=== PATIENT | female | born 1955 | race Caucasian/White ===

== ENCOUNTER → 2018-11-23 | Outpatient (CLI) | payer MEDICARE, OTHER, SELFPAY | PROVIDERS: PCP Family Medicine; Visit Provider Family Medicine | DX: M19.011 Primary osteoarthritis, right shoulder (principal); M47.892 Other spondylosis, cervical region | CPT/HCPCS: 73030 ==

== ENCOUNTER 2019-10-21 12:31 | Outpatient (CLI) | payer MEDICARE, SELFPAY ==
--- NOTE | ~2019-10-21 | MR_ITS ---
EXAMINATION: MR shoulder RT wo con DATE: 10/21/2019 13:35 INDICATION: Anterior right shoulder pain radiating down the upper arm. TECHNIQUE: Magnetic resonance imaging (MRI) of the right shoulder was performed without intravenous c ontrast. Sequences included axial PD-weighted FS FSE, coronal oblique PD-weighted FS FSE and T2-weigh samia FS FSE, and sagittal oblique T2-weighted FS FSE and T1-weighted FSE. COMPARISON: Right shoulder radiographs 11/23/2018 FINDINGS: Coracoacromial arch: The acromion undersurface is curved in morphology (type II). There is severe acromioclavicular joint osteoarthritis including inferiorly directed osteophytes. There is severe subacromial/subdeltoid burs itis. Rotator cuff: There is severe supraspinatus and infraspinatus tendinopathy. There is a bursal-sided tear of anterio r supraspinatus tendon measuring 5 mm anterior to posterior by 9 mm proximal to distal by 40% tendon thickness. Teres minor tendon is normal. There is moderate subscapularis tendinopathy. There is no as ymmetric fatty atrophy of the rotator cuff muscle bellies. Biceps tendon and glenoid labrum: Biceps tendon is in bicipital groove. Intra-articular biceps tendon is normal. There is a tear of sup erior labrum from 11:00 to 12:00. There is detachment of the anteroinferior labrum. Fluid: There is a moderate-sized glenohumeral joint effusion. Bones/cartilage: There is full-thickness cartilage loss of anteroinferior glenoid. Humeral head cartilage is normal. IMPRESSION: 1. Severe rotator cuff tendinopathy with bursal-sided, partial-thickness tear of supraspinatus tendon . 2. Focal severe chondrosis of anteroinferior glenoid. Superior and anteroinferior labral tear. 3. Moderate-sized glenohumeral joint effusion. 4. Severe subacromial/subdeltoid bursitis. 5. Severe acromioclavicular joint osteoarthritis. Reviewed, dictated and finalized at location A. IMPRESSION: 1. Severe rotator cuff tendinopathy with bursal-sided, partial-thickness tear o f supraspinatus tendon. 2. Focal severe chondrosis of anteroinferior glenoid. Superior and anteroinferi or labral tear. 3. Moderate-sized glenohumeral joint effusion. 4. Severe subacromial/subdeltoid bursitis. 5. Severe acromioclavicular joint osteoarthritis.
== END 2019-10-21 12:32 | disposition home or self-care (01) ==
PROVIDERS: PCP Family Medicine; Visit Provider Orthopaedic Surgery
DX: M19.011 Primary osteoarthritis, right shoulder (principal); M75.51 Bursitis of right shoulder
CPT/HCPCS: 73221

== ENCOUNTER 2019-12-29 03:17 | Outpatient (CLI) | payer MEDICARE, SELFPAY ==
[2019-12-29 17:45] LABS: SARS-CoV-2 RNA PCR Negative
== END 2019-12-29 03:18 | disposition home or self-care (01) ==
LOC: ANHCOVIDDT 03:17
PROVIDERS: PCP Family Medicine; Visit Provider Orthopaedic Surgery
DX: Z01.812 Encounter for preprocedural laboratory examination (principal); Z20.828 Contact with and (suspected) exposure to other viral communicable diseases
CPT/HCPCS: 87635; C9803; U0003

== ENCOUNTER 2019-12-29 07:35 | Outpatient (CLI) | payer MEDICARE, SELFPAY ==
--- NOTE | 2019-12-29 07:37 | ECG_ITS ---
Measurements Intervals [place] Rate: 70 P: 40 ID: [id number] QRS: -29 QRSD: 86 T: 57 QT: 362 QTc: 391 Interpretive Statements SINUS RHYTHM CANNOT RULE OUT SEPTAL INFARCT, AGE INDETERMINATE ABNORMAL ECG Electronically Signed On 12-29-2019 8:11:16 CDT by Ashkan Manzano D.O.
== END 2019-12-29 07:36 | disposition home or self-care (01) ==
LOC: ANHSURGERY 07:37
PROVIDERS: PCP Family Medicine; Visit Provider Orthopaedic Surgery
DX: I10 Essential (primary) hypertension (principal); Z01.818 Encounter for other preprocedural examination; R94.31 Abnormal electrocardiogram [ECG] [EKG]
CPT/HCPCS: 93005

== ENCOUNTER 2020-01-01 01:03 | Day surgery (SDC) | payer MEDICARE, SELFPAY ==
[2019-12-20 14:35] VITALS: BMI 31.3
[2020-01-01] VITALS (9 sets, daily range): BP systolic 104–143; BP diastolic 57–78; PULSE 61–82; RESP 14–20; TEMP 36.1–36.2; O2SAT 98–100
--- NOTE | 2020-01-01 06:45 | WPDANESEPPF ---
Anes - Initial Pre Proc Eval Procedure: Operation Date: 01/01/20 07:30 Proposed Procedures p Right Rotator Cuff Repair, Acromioplasty, Distal Clavicle Excision, Proceed As Indicated - Chapo Amado MD Date/Time: 01/01/20 06:45 Surgeon: Chapo Amado MD Pre Op Diagnosis: Right Rotator Cuff Tear/ AC Arthritis Patient Data Age: 64 Gender: F Height: 1.5 m Weight: 70.31 kg Allergies Allergy/AdvReac Type Severity Reaction Status Date / Time No Known Allergies Allergy Verified 01/01/20 06:23 Home Medications Medication Instructions Recorded Confirmed Type lisinopril 10 mg tablet 10 mg PO DAILY #90 tablet 06/01/19 01/01/20 Rx minocycline 50 mg capsule 50 mg PO DAILY #90 cap 06/01/19 01/01/20 Rx venlafaxine 150 mg 150 mg PO DAILY #90 cap 11/21/19 01/01/20 Rx capsule,extended release 24 hr triamcinolone acetonide 0.1 % 1 applic TOPICAL BID #60 ml 12/04/19 01/01/20 Rx lotion ferrous sulfate 325 mg (65 mg 325 mg PO BID 12/19/19 01/01/20 History iron) tablet Ginkoba 1 cap PO DAILY 12/20/19 01/01/20 History acetaminophen [Tylenol Arthritis] 650 mg PO Q12H PRN 12/20/19 01/01/20 History ascorbic acid (vitamin C) [Vitamin 300 mg PO DAILY 12/20/19 01/01/20 History C] calcium citrate [Citracal] 500 mg PO DAILY 12/20/19 01/01/20 History venlafaxine 75 mg PO DAILY PRN 12/20/19 01/01/20 History Patient hx anesthesia problems: none Family hx anesthesia problems: none PMFSH Past Medical History Medical History (Updated 12/19/19 @ 10:23 by Chapo Amado MD) Acne rosacea Arthritis of right acromioclavicular joint Diabetes Last A1C= 5.8 History of gout Hypertension Osteoarthritis Tear of right rotator cuff Surgical History Surgical History H/O knee surgery Meniscus Repair- Dr. Amado Hx of section 12-17-78-Dr. Sj Riley 83-Dr. Sj Riley Family History Family History Father Family history of gout Depression Acute myocardial infarction, Onset Age: 60 Diabetes mellitus Hypertension Family history of elevated blood lipids Family history of cardiovascular disease Mother Depression Family history of malignant neoplasm of thyroid Diabetes mellitus Family history of glaucoma Hypertension Family history of elevated blood lipids Cerebrovascular accident Grandparent Family history of malignant neoplasm of breast in first degree relative Social History Social History Smoking status: Never smoker Alcohol intake: current Drinks per week: 1 Additional living arrangements comments: Additional occupation/education comments: [employer] Spiritual care concerns: No Anes - Eval Final PreProcedure Day of Procedure 01/01/20 06:45 Patient weight: obese Heart: regular rate and rhythm Lungs: clear to auscultation and normal air movement Airway: Mallampati scale class II Neurological: alert and oriented Last oral intake: >/= 8 hours ASA classification: III Emergent: no Anesthetic plan: proceed Anesthesia type and monitoring: general ETT and standard monitoring Informed Consent: The patient's anesthetic plan and its attendant risks and benefits were discussed with the patient/family/POA. Questions were solicited and answers provided to the satisfaction of the patient/family/POA.
--- NOTE | 2020-01-01 07:17 | WPDHPUPDATE1 ---
History and Physical Update Update Date/Time: 01/01/20 07:17 History and Physical has been reviewed, including an updated exam of the patient. There are NO changes in the patient's condition. Risks, benefits, and alternatives have been discussed and questions answered. Patient agrees to proceed with procedure.
[2020-01-01] MEDS: ACETAMINOPHEN 500 MG TABLET 1000 MG PO (07:18)
[2020-01-01] MEDS: LACTATED RINGERS 1,000 ML 30 ML IV CONT (07:20)
[2020-01-01] MEDS: KETOROLAC 15 MG/ML VIAL (*BKC) IV PUSH (07:20)
--- NOTE | 2020-01-01 07:35 | WPDANESPNB ---
Anes - Peripheral Nerve Block Date/Time: 01/01/20 07:35 I have discussed with the patient/family/POA the placement of a peripheral nerve block for post-operative pain management, including associated risks, benefits, complications, and side effects. Alternative methods of post-operative analgesia were detailed. Questions were solicited and answers provided to the satisfaction of the patient/family/POA. Time-Out: A pre-procedural Time-Out was completed immediately before starting the procedure and confirmed: Patient Identification, Site, Procedure, Patient Position and the Availability of Requisite Equipment. Clinical Indications: Acute post-operative pain management requested by the operative surgeon. Nerve Block Insertion Note Anes-nerve block: interscalene right Patient position: supine Skin prep: chlorhexidine Needle: 22 gauge, stimulating, insulated echogenic needle. Needle length: 50 mm Technique: ultrasound Injectate: bupivacaine 0.5% with epi 5 mcg/ml (30cc) Observations: tolerated well Complications: none Procedure start time:: 728 Procedure end time:: 731
[2020-01-01] MEDS: ceFAZolin 2 GM/D5W 50 ML 2 GM/50 ML BAG IVPB (07:36)
[2020-01-01] MEDS: BUPIVACAINE/EPINEPHRINE 0.25% 50 ML VIAL INFILTRATE (08:44)
--- NOTE | 2020-01-01 09:00 | P.OP_ITS ---
Procedure Note - Detailed Date of procedure: 01/01/20 Pre-op diagnosis: Right Rotator Cuff Tear/ AC Arthritis Post-op diagnosis: same Procedure performed: Right shoulder rotator cuff repair with distal clavicle excision and acromioplasty Description of procedure: Patient was identified and proper site identified. In the preop holding area the anesthesia team performed a right upper extremity block. She was then taken to the operating room and transferred to the or table taking care to pad the torso and extremities. After general anesthetic induction and intubation, she was put in a semi beach chair position in the usual manner for a right shoulder procedure. Her head was secured taking care to neither rotate nor extend the head and neck. The right upper extremity was prepped and draped free in usual sterile fashion. The subcutaneous tissue in the area of the incision was injected with 10 cc of 0.25% Marcaine and epinephrine solution. An oblique anterior incision was made extending from the AC joint distally in line with the fibers of the deltoid. Subcutaneous tissue was sharply dissected down to the deltoid fascia. The deltoid was dissected off the anterior portion of the acromion in the distal end of the clavicle. A 2 cm split was made at the junction between the anterior and middle thirds of the deltoid. Using the microsagittal saw the last 8 mm of clavicle removed. The saw was also used to perform the acromioplasty and then the undersurface of the acromion was rasped smooth. There was an abundance of thickened bursa which was sharply debrided allowing for complete inspection of the cuff. There was an erosive type tear at the anterior portion of supraspinatus tendon along the greater tuberosity. The tendon edges were freshened up and degenerative tendon removed. The tuberosity was prepared for the repair. The tendon edges were reapproximated with 2. Ethibond suture. 2. Ethibond was also used to secure the repaired tendon back to the prepared greater tuberosity. This gave a deleon repair which was stable as the shoulder was taken through range of motion. The wound was irrigated with sterile NaCl solution. The deltoid was repaired back to the acromion with 2. Ethibond suture passed through bone and the remainder of the deltoid repair carried out with 2. Vicryl. Subcutaneous tissue was reapproximated with 2-0 Strata fix and then tissue adhesive used for the skin. Sterile dressing was applied. There were no known intraoperative complications, and perioperative antibiotics were administered. Anesthesia: GETA Surgeon: Chapo Amado MD Route Salesman And Driver: Lucio Cooper Estimated blood loss (mL): 10 Drains: No Packing: No Pathology: none sent Complications: No immediate complications Condition: stable Disposition: PACU
== END 2020-01-01 10:30 | disposition home or self-care (01) ==
PROVIDERS: PCP Family Medicine; Visit Provider Orthopaedic Surgery
PROC: (CPT 23420; principal; 2020-01-01 07:30)
DX: M75.101 Unspecified rotator cuff tear or rupture of right shoulder, not specified as traumatic (principal); G89.18 Other acute postprocedural pain; E11.9 Type 2 diabetes mellitus without complications; I10 Essential (primary) hypertension; E66.9 Obesity, unspecified; Z68.31 Body mass index [BMI] 31.0-31.9, adult
CPT/HCPCS: 23420; 23120; 64415; 87635; 93005; A4565; A9270; C9803; J0690; J1100; J1885; J2250; J2370; J2405; J2704; J2710; J3010; J3370; J7120; U0003

== ENCOUNTER 2020-05-15 14:17 | Outpatient (CLI) | payer MEDICARE, SELFPAY ==
--- NOTE | ~2020-05-15 | MM_ITS ---
EXAMINATION: MM screening clarisse BI w whitney HISTORY: Screening mammogram TECHNIQUE: Craniocaudal and mediolateral oblique 3-D tomosynthesis images were obtained and synthetic 2-D images were generated. CAD analysis was submitted and interpreted. COMPARISON: 07/2017, 05/24/2015, 05/24/2012 bilateral digital screening mammogram examinations BREAST PARENCHYMAL COMPOSITION: There are scattered areas of fibroglandular density. FINDINGS: Stable mild fibroglandular asymmetry. There is no evidence of suspicious mass, calcificatio n, or architectural distortion to suggest malignancy in either breast. There has been no suspicious i nterval change. IMPRESSION: 1. No mammographic evidence of malignancy. 2. Recommend routine screening mammography in one year. BI-RADS Category 2: Benign finding(s). Reviewed, dictated and finalized at location A. 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
== END 2020-05-15 14:18 | disposition home or self-care (01) ==
LOC: ANHIMG 14:19
PROVIDERS: PCP Family Medicine; Visit Provider Physician Assistant
DX: Z12.31 Encounter for screening mammogram for malignant neoplasm of breast (principal)
CPT/HCPCS: 77063; 77067

== ENCOUNTER → 2020-08-27 16:13 | Outpatient (CLI) | payer MEDICARE, SELFPAY ==
--- NOTE | ~2020-08-27 | XR_ITS ---
EXAMINATION: XR ankle LT 2V DATE: 08/27/2020 16:46 INDICATION: Left ankle pain. TECHNIQUE: 2 views of left ankle were obtained. COMPARISON: None. FINDINGS: Pes planus is noted. No fracture. There is mild osteoarthritis of some of the midfoot joint s. There is an osteochondral lesion of medial talar dome. There are enthesophytes at the posterior an d plantar aspects of calcaneal tuberosity. IMPRESSION: 1. Osteochondral lesion of medial talar dome. 2. Pes planus. Reviewed, dictated and finalized at location A.
== END ==
PROVIDERS: PCP Family Medicine; Visit Provider Physician Assistant
DX: M25.579 Pain in unspecified ankle and joints of unspecified foot (principal); M21.42 Flat foot [pes planus] (acquired), left foot
CPT/HCPCS: 73600

== ENCOUNTER 2021-08-12 09:54 | Outpatient (CLI) | payer MEDICARE, SELFPAY ==
--- NOTE | ~2021-08-12 | XR_ITS ---
XR lumbar spine 6V w bending DATE: 08/12/2021 10:34 INDICATION: Right low back pain radiating into right lower extremity TECHNIQUE: Standing AP, lateral, flexion and extension lateral, bilateral oblique and coned lateral l umbosacral views COMPARISON: None FINDINGS: There is diffuse idiopathic skeletal hyperostosis of the thoracic spine. Osteopenia. Mild rotatory levoscoliosis of the lumbar spine. Normal alignment of the lumbar spine. No fracture or bone destruction is evident. There is slight gra de 1 anterolisthesis at L4-5 likely due to degenerative change at the apophyseal joints. There is severe degenerative disease and minimal retrolisthesis at L2-3 and moderately prominent dege nerative disc disease at the remaining interspaces. The sacroiliac joints are intact. IMPRESSION: Osteopenia Mild rotatory levoscoliosis of lumbar spine Diffuse idiopathic skeletal hyperostosis of the thoracic spine Degenerative disc disease throughout the lumbar spine, most severe at L2-3 Reviewed, dictated and finalized at location A.
== END 2021-08-12 09:55 | disposition home or self-care (01) ==
LOC: ANHIMG 10:08
PROVIDERS: PCP Family Medicine; Visit Provider Family Medicine
DX: M54.30 Sciatica, unspecified side (principal); R20.0 Anesthesia of skin; M85.88 Other specified disorders of bone density and structure, other site; M51.36 Other intervertebral disc degeneration, lumbar region
CPT/HCPCS: 72114

== ENCOUNTER 2021-08-12 10:40 | Outpatient (CLI) | payer MEDICARE, SELFPAY ==
[2021-08-12 11:06] LABS: Basophils Absolute Auto 0.1 K/mm3 (0.0-0.1); Basophils Percent Auto 0.6 % (0.2-1.2); Eosinophils Percent Auto 0.2 % (0-4.4); Hemoglobin 11.9 g/dL (12.0-15.0); Immature Granulocyte Absolute 0.06 K/mm3 (0.00-0.031); Immature Granulocyte Percent A 0.6 % (0-0.5); Lymphocytes Absolute Auto 1.13 K/mm3 (0.9-3.2); Lymphocytes Percent Auto 11.4 % (18.3-44.2); Mean Corpuscular HGB Conc 32.2 g/dl (32-36); Mean Corpuscular Hemoglobin 28.6 pg (26-34); Mean Corpuscular Volume 88.9 fl (80-100); Monocytes Absolute Auto 0.4 K/mm3 (0.1-0.6); Neutrophils Absolute Auto 8.2 K/mm3 (1.3-6.7); Neutrophils Percent Auto 83.2 % (45.5-73.1); Platelet Count Result 378 k/mm3 (150-375); Red Blood Count 4.16 M/mm3 (4.2-5.4); White Blood Count 9.9 K/mm3 (4.5-10.0)
[2021-08-12 12:54] LABS: Iron 116 ug/dL (37-170)
[2021-08-12 13:07] LABS: Percent Iron Saturation 44 % (20-50)
[2021-08-12 14:15] LABS: Vitamin B12 > 1000.0 pg/mL (239-931)
== END 2021-08-12 10:41 | disposition home or self-care (01) ==
LOC: ANHLAB 10:41
PROVIDERS: PCP Family Medicine; Visit Provider Internal Medicine Hematology & Oncology
DX: D64.9 Anemia, unspecified (principal)
CPT/HCPCS: 36415; 72114; 82607; 82728; 82746; 83540; 83550; 85025

== ENCOUNTER 2022-03-24 16:54 | Emergency (ER) | payer MEDICARE, SELFPAY ==
--- NOTE | ~2022-03-24 | XR_ITS ---
EXAMINATION: XR hand LT min 3V DATE: 03/24/2022 17:30 INDICATION: Left hand injury. TECHNIQUE: 3 views of left hand were obtained. COMPARISON: None. FINDINGS: There is a transverse fracture of metaphysis of fifth proximal phalanx. The distal fracture fragment demonstrates 76 degrees posterior angulation, 3 mm radial displacement, and 15 degrees ulna r angulation. There is a nondisplaced oblique fracture of metaphysis of fourth proximal phalanx. Ther e is mild osteoarthritis of first carpometacarpal joint and triscaphe joint. IMPRESSION: 1. Fractures of the fourth and fifth proximal phalanges. Reviewed, dictated and finalized at location A. E FOREMAN
[2022-03-24 17:01] VITALS: BP 130/58; PULSE 66; RESP 16; TEMP 36.9; O2SAT 100
--- NOTE | 2022-03-24 17:10 | PC.NURSE ---
ERPA at bedside for patient assessment.
--- NOTE | 2022-03-24 17:13 | ED.UPPEXIN ---
HPI - Extremity Injury (Upper) General Chief Complaint: Extremity Injury, Upper Stated Complaint: fall, possible broken left hand Time Seen by Provider: 03/24/22 17:05 History of Present Illness HPI narrative: 66-year-old female presents to the emergency room for evaluation of an injury sustained to her left hand. Patient states just prior to arrival she fell landing on her left hand and left knee. Immediately began experiencing pain to her fourth and fifth fingers. States the pain is worse with attempting to move it. Is not taking anything to alleviate her symptoms. Denies any other injuries. Denies head injury. Related Data Home Medications Medication Instructions Recorded Confirmed ferrous sulfate 325 mg (65 mg 325 mg PO BID 12/19/19 11/21/21 iron) tablet Ginkoba 1 cap PO DAILY 12/20/19 11/21/21 ascorbic acid (vitamin C) 300 mg 300 mg PO DAILY 12/20/19 11/21/21 chewable tablet calcium citrate 500 mg (2,376 mg) 500 mg PO DAILY 12/20/19 11/21/21 effervescent tablet acetaminophen 650 mg 650 mg PO Q12H PRN 11/21/21 11/21/21 tablet,extended release (Tylenol Arthritis Pain) naproxen 500 mg tablet See Rx Instructions .Route 11/21/21 11/21/21 .COMPLEX PRN Allergies Allergy/AdvReac Type Severity Reaction Status Date / Time Sulfa (Sulfonamide Allergy Unconscious Verified 03/24/22 17:23 Antibiotics) naproxen AdvReac Unknown gerd Verified 11/21/21 16:06 Review of Systems Review of Systems: CONSTITUTIONAL: Denies fever, chills, or sweats. EYES: Denies visual changes, redness, or discharge. ENT: Denies rhinorrhea, congestion, sore throat, or otalgia. CARDIOVASCULAR: Denies chest pain, palpitations, or edema. RESPIRATORY: Denies cough or dyspnea. GASTROINTESTINAL: Denies abdominal pain, nausea, vomiting, or diarrhea. GENITOURINARY: Denies dysuria or hematuria. SKIN: Denies rash or itching. MUSCULOSKELETAL: Reports pain to the left hand NEUROLOGIC: Denies headache, numbness, dizziness, or weakness. PSYCHIATRIC: Denies anxiety or depression. [facility], [facility] Past Medical History Medical History Acne rosacea Anemia Anxiety Arthritis Cancer treatment started Constipation Depression Diabetes Last A1C= 5.8 History of gout Hypertension Hypothyroidism Osteoarthritis Osteochondral defect of talus Psoriasis Wears glasses Surgical History Surgical History H/O knee surgery Meniscus Repair- Dr. Amado History of gastric bypass Hx of section 12-17-78-Dr. Sj Riley 01-14-85-Dr. Sj Riley S/P right rotator cuff repair Family History Family History Father Family history of gout Depression Acute myocardial infarction, Onset Age: 60 Diabetes mellitus Hypertension Family history of elevated blood lipids Family history of cardiovascular disease Mother Depression Family history of malignant neoplasm of thyroid Diabetes mellitus Family history of glaucoma Hypertension Family history of elevated blood lipids Cerebrovascular accident Grandparent Family history of malignant neoplasm of breast in first degree relative Other Arthritis Asthma Breast cancer Lung cancer Social History Social History Smoking status: Never smoker Alcohol intake: current Alcohol use details: 2 per month Additional living arrangements comments: 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 HEAD: Normocephalic, atraumatic. EYES: Conjunctivae normal, PERRLA and EOMI. CHEST: Clear to auscultation. No respiratory distress. No wheezes rales or rhonchi. No
--- NOTE | 2022-03-24 17:22 | PC.NURSE ---
xray at bedside.
== END 2022-03-24 18:35 | disposition home or self-care (01) ==
PROVIDERS: Emergency Provider Nurse Practitioner Family; PCP Emergency Medicine
DX: S62.615A Displaced fracture of proximal phalanx of left ring finger, initial encounter for closed fracture (principal); S62.617A Displaced fracture of proximal phalanx of left little finger, initial encounter for closed fracture; E11.9 Type 2 diabetes mellitus without complications; M10.9 Gout, unspecified; I10 Essential (primary) hypertension; E03.9 Hypothyroidism, unspecified; D64.9 Anemia, unspecified; M19.90 Unspecified osteoarthritis, unspecified site; Z98.84 Bariatric surgery status; W19.XXXA Unspecified fall, initial encounter
CPT/HCPCS: 29125; 73130; 99284; A4565

== ENCOUNTER 2022-08-26 08:50 | Outpatient (CLI) | payer MEDICARE, SELFPAY ==
[2022-08-26 09:13] LABS: Basophils Absolute Auto 0.1 K/mm3 (0.0-0.1); Basophils Percent Auto 1.1 % (0.2-1.2); Eosinophils Absolute Auto 0.2 K/mm3 (0-0.3); Eosinophils Percent Auto 5.1 % (0-4.4); Hematocrit 35.4 % (37.0-47.0); Hemoglobin 11.6 g/dL (12.0-15.0); Lymphocytes Absolute Auto 1.27 K/mm3 (0.9-3.2); Lymphocytes Percent Auto 26.8 % (18.3-44.2); Mean Corpuscular HGB Conc 32.8 g/dl (32-36); Mean Corpuscular Hemoglobin 29.6 pg (26-34); Mean Corpuscular Volume 90.3 fl (80-100); Mean Platelet Volume 9.3 fl (7.4-10.4); Monocytes Absolute Auto 0.4 K/mm3 (0.1-0.6); Neutrophils Absolute Auto 2.8 K/mm3 (1.3-6.7); Platelet Count Result 257 k/mm3 (150-375); Red Blood Count 3.92 M/mm3 (4.2-5.4); White Blood Count 4.7 K/mm3 (4.5-10.0)
[2022-08-26 10:19] LABS: Iron 110 ug/dL (37-170)
[2022-08-26 10:20] LABS: Alanine Aminotransferase 37 U/L (6-35); Albumin Level 3.8 g/dL (3.5-5.1); Alkaline Phosphatase 142 U/L (38-126); Anion Gap 3 mmol/L (8-16); Aspartate Amino Transferase 36 U/L (14-36); Bilirubin,Total 0.4 mg/dL (0.2-1.3); Blood Urea Nitrogen 23 mg/dL (7-17); Carbon Dioxide 28 mmol/L (22-30); Chloride 108 mmol/L (98-107); Cholesterol 204 mg/dL (0-200); Estimated Glomerular Filt Rate 45; Glucose 88 mg/dL (65-110); HDL Direct 95 mg/dL; Sodium 139 mmol/L (137-145); Triglycerides 81 mg/dL (<150)
[2022-08-26 10:28] LABS: Percent Iron Saturation 37 % (20-50)
[2022-08-26 10:31] LABS: LDL Cholesterol Direct 83 mg/dL
[2022-08-26 10:36] LABS: Hemoglobin A1C 5.4 % (<5.7)
[2022-08-26 10:54] LABS: Thyroid Stimulating Hormone Reflex 0.641 uIU/mL (0.465-4.68)
[2022-08-26 11:08] LABS: Hepatitis C Virus Antibody Negative (Negative)
[2022-08-26 11:26] LABS: Folic Acid 10.1 ng/mL (2.76->20)
== END 2022-08-26 08:51 | disposition home or self-care (01) ==
LOC: ANHLAB 08:52
PROVIDERS: PCP Hospitalist; Visit Provider Internal Medicine Hematology & Oncology
DX: D64.9 Anemia, unspecified (principal); E53.8 Deficiency of other specified B group vitamins; D50.9 Iron deficiency anemia, unspecified; Z86.39 Personal history of other endocrine, nutritional and metabolic disease; Z98.84 Bariatric surgery status; Z11.59 Encounter for screening for other viral diseases
CPT/HCPCS: 36415; 80053; 80061; 82607; 82728; 82746; 83036; 83540; 83550; 84443; 85025; 86803

== ENCOUNTER 2023-09-01 08:14 | Outpatient (CLI) | payer MEDICARE, SELFPAY ==
[2023-09-01 08:28] LABS: Basophils Absolute Auto 0.1 K/mm3 (0.0-0.1); Basophils Percent Auto 1.3 % (0.2-1.2); Eosinophils Absolute Auto 0.4 K/mm3 (0-0.3); Eosinophils Percent Auto 7.8 % (0-4.4); Hematocrit 36.1 % (37.0-47.0); Hemoglobin 11.8 g/dL (12.0-15.0); Immature Granulocyte Absolute 0.02 K/mm3 (0.00-0.031); Immature Granulocyte Percent A 0.4 % (0-0.5); Lymphocytes Absolute Auto 1.19 K/mm3 (0.9-3.2); Lymphocytes Percent Auto 26.4 % (18.3-44.2); Mean Corpuscular HGB Conc 32.7 g/dl (32-36); Mean Corpuscular Hemoglobin 29.2 pg (26-34); Mean Corpuscular Volume 89.4 fl (80-100); Mean Platelet Volume 8.7 fl (7.4-10.4); Monocytes Absolute Auto 0.3 K/mm3 (0.1-0.6); Monocytes Percent Auto 7.1 % (2.6-8.5); Neutrophils Absolute Auto 2.6 K/mm3 (1.3-6.7); Platelet Count Result 230 k/mm3 (150-375); Red Blood Count 4.04 M/mm3 (4.2-5.4); Red Cell Distribution Width 12.7 % (11.5-14.5); White Blood Count 4.5 K/mm3 (4.5-10.0)
[2023-09-01 08:45] LABS: Anion Gap 3 mmol/L (4-12); Blood Urea Nitrogen 23 mg/dL (7-17); Calcium 9.5 mg/dL (8.4-10.2); Carbon Dioxide 28 mmol/L (22-30); Chloride 109 mmol/L (98-107); Estimated Glomerular Filt Rate 45; Glucose 108 mg/dL (65-110); Potassium 4.5 mmol/L (3.4-5.0); Sodium 140 mmol/L (137-145)
[2023-09-01 09:03] LABS: Iron 100 ug/dL (37-170)
[2023-09-01 09:12] LABS: Percent Iron Saturation 32 % (20-50)
[2023-09-01 09:51] LABS: Folic Acid 16.1 ng/mL (2.76->20)
== END 2023-09-01 08:15 | disposition home or self-care (01) ==
LOC: ANHLAB 08:18
PROVIDERS: PCP Hospitalist; Visit Provider Internal Medicine Hematology & Oncology
DX: D64.9 Anemia, unspecified (principal)
CPT/HCPCS: 36415; 80048; 82607; 82728; 82746; 83540; 83550; 85025

== ENCOUNTER 2024-03-20 10:40 | Outpatient (CLI) | payer MEDICARE, SELFPAY ==
[2024-03-20 10:57] LABS: Hematocrit 33.6 % (37.0-47.0); Hemoglobin 10.5 g/dL (12.0-15.0); Mean Corpuscular HGB Conc 31.3 g/dl (32-36); Mean Corpuscular Hemoglobin 27.8 pg (26-34); Mean Corpuscular Volume 88.9 fl (80-100); Mean Platelet Volume 8.7 fl (7.4-10.4); Platelet Count Result 238 k/mm3 (150-375); Red Blood Count 3.78 M/mm3 (4.2-5.4); Red Cell Distribution Width 12.2 % (11.5-14.5); White Blood Count 5.8 K/mm3 (4.5-10.0)
[2024-03-20 16:56] LABS: Iron 42 ug/dL (37-170)
[2024-03-20 17:05] LABS: Percent Iron Saturation 12 % (20-50)
[2024-03-20 17:07] LABS: Anion Gap 2 mmol/L (4-12); Blood Urea Nitrogen 17 mg/dL (7-17); Carbon Dioxide 30 mmol/L (22-30); Chloride 103 mmol/L (98-107); Estimated Glomerular Filt Rate 52; Glucose 116 mg/dL (65-110); Potassium 4.4 mmol/L (3.4-5.0); Sodium 135 mmol/L (137-145)
[2024-03-20 17:33] LABS: Ferritin 9.32 ng/mL (11.1-264)
[2024-03-20 18:17] LABS: Folic Acid 17.7 ng/mL (2.76->20)
== END 2024-03-20 10:41 | disposition home or self-care (01) ==
LOC: ANHLAB 10:41
PROVIDERS: PCP Hospitalist; Visit Provider Internal Medicine Hematology & Oncology
DX: D64.9 Anemia, unspecified (principal)
CPT/HCPCS: 36415; 80048; 82607; 82728; 82746; 83540; 83550; 85027

== ENCOUNTER 2024-06-16 09:05 | Outpatient (CLI) | payer MEDICARE, SELFPAY ==
[2024-06-16 09:21] LABS: Hematocrit 37.2 % (37.0-47.0); Hemoglobin 12.4 g/dL (12.0-15.0); Mean Corpuscular HGB Conc 33.3 g/dl (32-36); Mean Corpuscular Hemoglobin 28.8 pg (26-34); Mean Corpuscular Volume 86.3 fl (80-100); Platelet Count Result 249 k/mm3 (150-375); Red Blood Count 4.31 M/mm3 (4.2-5.4); White Blood Count 4.4 K/mm3 (4.5-10.0)
--- OUTSIDE RECORDS SUMMARY | 2024-06-16 09:24 | XMS_ITS | Patient Health Record ---
Author Organization [facility] [employer], Part of [employer] Address [address] [facility] [address] [place] [address] Care Team Providers Care Sap Fico Architect Name Role Phone Hay UPTON, Zenaida Primary Care Provider Unaadalberto Fallon Ocampo Unavailable [phone] Allergies No Known Allergies Results Component Value Reference Range Notes UDT Reviewed date:09/23/2023 07:14:00 PM Interpretation: Performing Lab: Notes/Report: THC N 0 - 50 ng/ml Cocaine N 0 - 300 ng/ml Amphetamine N 0 - 1000 ng/ml Buprenorphine (BUP) N 0 - 10 ng/ml Secobarbital (Bar) N 0 - 300 ng/ml Oxazepam (BZO) N 0 - 300 ng/ml 6-aoaiqtqxxu-4,2-nloxciyb-8,3-diphenylpyrrolidine (JUAN P) N 0 - 300 ng/ml Methamphetamine (MET) N 0 - 1000 ng/ml Methylenedioxymethamphetamine (MDMA) N 0 - 500 ng/ml Morphine (MOP 300/[id number]) N 0 - 300 ng/ml Methadone (MTD) N 0 - 300 ng/ml Phencyclidine (PCP) N 0 - 25 ng/ml Nortriptyline (TCA) N 0 - 1000 ng/ml Oxycodone N 0 - 300 ng/ml x N 0 - 300 ng/ml Reason For Referral No Information Medications Medication SIG (Take, Route, Frequency, Duration) Notes Start Date End Date Status Ezetimibe 10 MG Oral for 90 Days Active buPROPion HCl ER (XL) 150 MG 1 tablet in the morning Orally Once a day for 90 days Active Trintellix 20 MG Oral for 90 Days Active hydroCHLOROthiazide 25 MG Oral for 90 Days Active amLODIPine Besylate 5 MG Oral for 100 Days Active buPROPion HCl ER (XL) 150 MG Oral for 30 Days Active oxyCODONE HCl 5 MG TAKE 1 TABLET BY MOUTH EVERY 4 HOURS NEEDED FOR PAIN Oral for 2 Days Active HYDROcodone-Acetaminophen 5- 325 MG TAKE 1 TABLET BY MOUTH EVERY 6 HOURS NEEDED FOR PAIN Oral for 7 Days Active Trintellix 20 MG 1 tablet Orally Once a day for 90 days Active Rosuvastatin Calcium 5 MG Oral for 90 Days Active Ginkgo Biloba 120 MG as directed Orally Active Social History Tobacco Use: Social History Observation Description Date Details (start date - stop date) Never Smoker NA - NA Sex Assigned At : Social History Observation Description Sex Assigned At Female Tobacco Control (Standard) Question Answer Notes Tobacco use: Nonsmoker AUDIT-C (Standard) Question Answer Notes Points 0 Did you have a drink contain ing alcohol in the past year? Yes How often did you have six o r more drinks on one occasion in the past year? Never (0 point) How many drinks did you have on a typical day when you were drinking in the past year? 1 or 2 drinks (0 point) How often did you have a dri nk containing alcohol in the past year? Monthly or less (1 point) Vital Signs Heart Rate 61 /min 09/23/2023 Height-cm 152.4 cm 09/23/2023 Blood pressure diastolic 75 mm Hg 09/23/2023 Weight-kg 66.86 kg 09/23/2023 Height 60 in 09/23/2023 Blood pressure systolic 150 mm Hg 09/23/2023 Weight 147.4 lbs 09/23/2023 BMI 28.78 kg/m2 09/23/2023 Encounters Encounter Location Date Provider Diagnosis [facility] [address] [address] 09/23/2023 Thena Vito Episode of recurrent major depressive disorder, unspecified depression episode severity F33.9 Melinta [facility] [address] [facility] [address] [place] [address] 11/12/2023 Thena Vito Episode of recurrent major depressive disorder, unspecified depression episode severity F33.9 Melinta [facility] [address] [facility] [address] [place] [address] 02/11/2024 Thena Vito Episode of recurrent major depressive disorder, unspecified depression episode severity F33.9 [facility] [address] [facility] [address] [place] [address] 12/09/2023 Thena Vito Episode of recurrent major depressive disorder, unspecified depression episode severity F33.9 [facility] [employer], [facility] [address] [place] [address] 04/25/2024 Thena Vito Episode of recurrent major depressive disorder, unspecified depression episode severity F33.9 Assessments Encounter Date Diagnosis (ICD Code) Assessment Notes Treatment Notes Treatment Clinical Notes Section Notes 09/23/2023 Episode of recurrent major depressive disorder, unspecified depression episode severity (ICD-10 - F33.9) 11/12/2023 Episode of recurrent major depressive disorder, unspecified depression episode severity (ICD-10 - F33.9) 12/09/2023 Episode of recurrent major depressive disorder, unspecified depression episode severity (ICD-10 - F33.9) 02/11/2024 Episode of recurrent major depressive disorder, unspecified depression episode severity (ICD-10 - F33.9) 04/25/2024 Episode of recurrent major depressive disorder, unspecified depression episode severity (ICD-10 - F33.9) 09/23/2023 Other Learning About Depression Screening material was printed Plan Of Treatment No Information Insurance Providers Payer Name Payer Address Payer Phone Subscriber Number Group Number Insured Name Patient Relationship to Insured Coverage Start Date Coverage End Date [facility] [address] [place] [phone] [id number] Kalpana Patterson Self - patient is the insured Medical (General) History Medical History History ICD Code Past Psychiatric History: PTSD,Major Dep ressive Episode abdominal aortic aneurysm: No atrial fibrillation: No chronic fatigue syndrome: Yes essential tremor: No hyperlipidemia: No hypertension: Yes Parkinson's disease: No restless leg syndrome: Yes stroke: No subdural hematoma: No type 1 diabetes mellitus: No type 2 diabetes mellitus: Yes vitamin B12 deficiency: No vitamin D deficiency: No
--- OUTSIDE RECORDS SUMMARY | 2024-06-16 09:24 | XMS_ITS | Clinical Summary ---
Author Organization [facility] [place] [facility] Address [address] [place] [address] Care Team Providers Care Incubator Machine Operator Name Role Phone Zenaida Guido MD Primary Care Pro vider Allergies No known active allergies Medications cetirizine (ZyrTEC) 10 mg tablet Take 10 mg by mouth daily. Active hydroCHLOROthiaz amrik 25 mg tablet Take 25 mg by mouth daily. 08/13/2023 Active vortioxetine (TRINTELLIX) 20 mg tablet Take 25 mg by mouth daily. 08/13/2023 Active amLODIPine (NORVASC) 5 mg tablet Take 5 mg by mouth daily. 03/18/2024 Active aspirin (ECOTRIN EC) 81 mg Tablet, Delayed Release (E.C.) Take 81 mg by mouth 2 times daily. 01/28/2024 Active buPROPion HCL (WELLBUTRIN XL) 150 mg Extended Release 24 hour tablet Take 150 mg by mouth daily in the morning. Active Magnesium 200 mg Tablet Take 200 mg by mouth. Active omeprazole (PriLOSEC) 20 mg Capsule, Delayed Release(E.C.) Take 20 mg by mouth daily. 09/10/2023 Active CALCIUM CARBONATE ORAL Take by mouth. Active IRON, CARBONYL ORAL Take by mouth. Active Active Problems Problem Noted Date Diagnosed Date Vitamin B12 deficiency (non anemic) 12/20/2020 Iron deficiency anemia 07/03/2020 Encounters Date Type Department Care Team Description 05/24/2024 External Device Data ST[facility] ABSTRACTION Provider, Abstract 05/13/2024 External Device Data [facility] ABSTRACTION Provider, Abstract 05/12/2024 External Device Data [facility] ABSTRACTION Provider, Abstract 05/10/2024 External Device Data [facility] ABSTRACTION Provider, Abstract 04/26/2024 External Device Data [facility] ABSTRACTION Provider, Abstract 03/30/2024 External Device Data [facility] ABSTRACTION Provider, Abstract 03/24/2024 Orders Only [facility] [place] [facility] - [place] [address] [place] [phone] Zhou Garnica MD 03/22/2024 11:00 AM HARVESTING CONTRACTOR Office Visit [facility] [place] [facility] - [place] [address] [place] [phone] Zhou Garnica MD Chronic anemia (Primary Dx) 03/21/2024 Orders Only [facility] [place] [facility] - [place] [address] [place] [phone] Zhou Garnica MD 03/21/2024 Telephone [facility] [place] [facility] - [address] [place] [phone] Zhou Garnica MD lab work for appointment from Last 3 Months Family History Relation Name Status Comments Brother Alive Daughter 1 Alive Daughter 2 Alive Father Mother Alive Sister Alive Social History Tobacco Use Types Packs/Day Years Used Date Smoking Tobacco: Never Smokeless Tobacco: Never Tobacco Cessation:Counseling Given: Not Answered Alcohol Use Standard Drinks/Week Comments Yes 0 (1 standard drink = 0.6 oz pur e alcohol) Comments Unknown Sex and Gender Information Value Date Recorded Sex Assigned at Not on file Legal Sex Female 1:40 PM CDT Gender Identity Not on file Sexual Orientation Not on file Last Filed Vital Signs Vital Sign Reading Time Taken Comments Blood Pressure 124/70 03/22/2024 10:57 AM HAR[employer]STING CONTRACTOR Pulse 66 03/22/2024 10:57 AM HARVESTING CONTRACTOR Temperature 36.9 C (98.5 F) 03/22/2024 10:57 AM HARVESTING CONTRACTOR Respiratory Rate 14 03/22/2024 10:57 AM HARVESTING CONTRACTOR Oxygen Saturation 96% 03/22/2024 10:57 AM HARVESTING CONTRACTOR Inhaled Oxygen Concentration - - Weight 63 kg (139 lb) 03/22/2024 10:57 AM HARVESTING CONTRACTOR Height 149.9 cm (4' 11 ) 08/20/2021 2:25 PM CDT Body Mass Index 28.07 08/20/2021 2:25 PM CDT Plan of Treatment Upcoming Encounters Date Type Department Care Team (Late st Contact Info) Description 06/21/2024 2:00 PM CDT Office Visit [facility] [place] [facility] - [place] A [address] [place] [phone] Zhou Garnica MD [address] [place] [address] Health Maintenance Due Date Last Done Comments Pre-Diabetes and Diabetes Screening 1955 DTAP/TDAP/TD VACCINES (1 - Tdap) 1972 FIT-DNA Q 3 years 1998 FIT/FOBT Q 1 year 1998 Flex Sig/CT Colonography Q 5 years 1998 RSV VACCINE (60+ or ) (1 - Risk 60-74 years 1-dose series) 2013 ZOSTER VACCINE (2 of 3) 01/15/2015 11/20/2014 BREAST CANCER SCREENING 08/22/2023 08/21/2022, 08/21 [place] Preventative Visit/Annual Wellness Visit 03/08/2024 07/17/2022 COLORECTAL SCREENING 06/27/2033 06/28/2023, 06/28/19 Colorectal Cancer Screening 06/27/2033 OSTEOPOROSIS SCREENING Completed 11/25/2022, 2022 PNEUMOCOCCAL VACCINE 50+ YEARS Completed 12/01/2022 , 02/05/2021 INFLUENZA VACCINE Completed 12/06/2023, , 11/21/2021, Additional history exists Procedures Procedure Name Priority Date/Time Associated Diagnosis Comments BASIC METABOLIC PANEL Routine 03/20/2024 2:09 PM HARVESTING [employer]OR CBC WITH DIFFERENTIAL Routine 03/20/2024 2:04 PM HARVESTING CONTRACTOR BASIC METABOLIC PANEL Routine 03/20/2024 1:28 PM HARVESTING CONTRACTOR CBC WITH DIFFERENTIAL Routine 03/20/2024 12:58 PM HARVESTING CONTRACTOR IRON PANEL Routine 03/20/2024 12:52 PM HARVESTING CONTRACTOR from Last 3 Months Results * BASIC METABOLIC PANEL (03/20/2024 2:09 PM HARVESTING CONTRACTOR) Only the most recent of2 resultswithin the time period is included. Blood us Zhou Garnica MD CHEMISTRY ORDERABLES Final Resu lt * CBC WITH DIFFERENTIAL (03/20/2024 2:04 PM HARVESTING CONTRACTOR) Only the most recent of2 resultswithin the time period is included. Blood us Zhou Garnica MD HEMATOLOGY ORDERABLES Final Res ult * IRON PANEL (03/20/2024 12:52 PM HARVESTING CONTRACTOR) Blood us Zhou Garnica MD CHEMISTRY ORDERABLES Final Resu lt from Last 3 Months Insurance [facility] [id number] Care Teams Incubator Machine Operator Relationship Specialty Start Date End Date Zenaida Guido MD PCP - General Family Practice 08/27/22
--- OUTSIDE RECORDS SUMMARY | 2024-06-16 09:24 | XMS_ITS | Referral Summary ---
Author Organization [facility] Address [address] [place] [address] Care Team Providers Care Technical Support 1 Software Engineer Name Role Phone Zenaida Guido MD Primary Care Pro vider Man Miller MD Unavailable [phone] Encounters Date Type Department Care Team Description 06/05/2024 1:00 PM CDT Office Visit [facility] Primary Care at [address] [phone] Zenaida Guido MD Annual physical exam (Primary Dx); Encounter for screening mammogram for breast cancer; Post-menopausal; Skin cancer screening; History of diabetes mellitus resolved following bariatric surgery; Primary hypertension; Dyslipidemia; Stage 3a chronic kidney disease (HCC); Gastroesophageal reflux disease without esophagitis; Recurrent major depressive disorder, in full remission; Elevated glucose 05/30/2024 1:30 PM CDT Office Visit [facility] Nephrology at [address] [phone] Robson Cedeño MD Stage 3a chronic kidney disease (HCC) (Primary Dx); Benign hypertensive kidney disease with chronic kidney disease stage I through stage IV, or unspecified(403.10); Anemia in stage 3a chronic kidney disease (HCC); Secondary hyperparathyroidism 05/29/2024 Telephone [facility] Primary Care at [address] [place] [address] Zenaida Guido MD 04/26/2024 1:40 PM PATIENT SCHEDULER Office Visit [facility] Orthopaedic Surgery [address] [facility] [address]th [place] [address] [place] [address] Jailyn Mckenzie MD Closed displaced comminuted fracture of shaft of left humerus, initial encounter (Primary Dx) 04/26/2024 12:20 PM PATIENT SCHEDULER - 04/26/2024 11:59 PM PATIENT SCHEDULER Hospital Encounter [facility] [address] [place] [address] Closed displaced comminuted fracture of shaft of left humerus, initial encounter Discharge Disposition: Discharge to home or self care 04/19/2024 12:45 PM PATIENT SCHEDULER Ancillary Procedure [facility] Imaging at [address] [phone] Acute cough 04/19/2024 12:30 PM PATIENT SCHEDULER Office Visit [facility] Convenient Care at [address] [phone] Keily Dailey PA Acute cough (Primary Dx) from Last 3 Months Allergies Active Allergy Reactions Criticality Noted Date Comments Rosuvastatin Hives Medium 08/13/2023 Ezetimibe Hives Medium 12/06/2023 Medications cetirizine (ZyrTEC) 10 mg tabletIndication s:chronic allergies Take 1 tablet (10 mg total) by mouth as needed Active acetaminophen (TYLENOL ARTHRITIS PAIN ORAL) Take 1,300 mg by mouth every morning Active magnesium gluconate 200 mg tablet Take 1 tablet (200 mg total) by mouth 2 (two) times a day as needed Active GINKGO BILOBA ORAL Take 2 tablets by mouth every morning Active omeprazole (PriLOSEC) 20 mg capsuleIndicatio ns:Gastroesophag eal reflux disease without esophagitis Take 1 capsule (20 mg total) by mouth daily 90 capsule 3 09/10/19 24 Active aspirin 81 mg enteric coated tablet Take 1 tablet (81 mg total) by mouth 2 (two) times a day for 14 days For blood clot prevention. Take with food. 28 tablet 01/28/20 24 Active Additional Information Patient taking differently:81 mg oralDaily, For blood clot prevention. Take with food., Reported on 05/30/2024 amLODIPine (NORVASC) 5 mg tabletIndication s:Primary hypertension Take 1 tablet (5 mg total) by mouth daily 100 tablet 1 06/06/19 25 Active hydroCHLOROthiaz amrik (HYDRODIURIL) 25 mg tabletIndication s:Primary hypertension Take 1 tablet (25 mg total) by mouth daily 100 tablet 1 06/06/19 25 Active buPROPion XL (WELLBUTRIN XL) 150 mg 24 hr tabletIndication s:Anxiety with Depression Take 1 tablet (150 mg total) by mouth every morning 100 tablet 1 06/06/19 25 026 Active vortioxetine (TRINTELLIX) 20 mg tabletIndication s:major depressive disorder Take 1 tablet (20 mg total) by mouth daily 100 tablet 1 06/06/19 25 026 Active sucralfate (CARAFATE) 1 gram tablet Take 1 tablet (1 g total) by mouth 4 (four) times a day as needed Active vortioxetine (TRINTELLIX) 20 mg tabletIndication s:major depressive disorder Take 1 tablet (20 mg total) by mouth daily 90 tablet 08/13/19 24 025 Discontin ued(Reord er) buPROPion XL (WELLBUTRIN XL) 150 mg 24 hr tabletIndication s:Anxiety with Depression Take 1 tablet (150 mg total) by mouth every morning 025 Discontin ued(Reord er) hydroCHLOROthiaz amrik (HYDRODIURIL) 25 mg tabletIndication s:Primary hypertension,Hyp erkalemia,Periph eral edema Take 1 tablet (25 mg total) by mouth daily 90 tablet 1 03/06/20 24 025 Discontin ued(Reord er) amLODIPine (NORVASC) 5 mg tabletIndication s:Primary hypertension Take 1 tablet (5 mg total) by mouth daily 100 tablet 03/18/19 25 025 Discontin ued(Reord er) Active Problems Problem Noted Date Diagnosed Date Closed fracture of shaft of left humerus 024 Assessment & Plan (01/27/2024 3:35 PM PATIENT SCHEDULER): Reviewed ED note and orthopedics note, upcoming surgery tomorrow Dyslipidemia 07/16/2023 Assessment & Plan (06/05/2024 1:15 PM CDT): had side effects with crestor & zetia Assessment & Plan (12/06/2023 9:03 AM CDT): had side effects with crestor & zetia Assessment & Plan (08/13/2023 2:47 PM CDT): Given side effects with crestor will discontinue and switch to zetia Assessment & Plan (07/16/2023 3:21 PM CDT): Given myalgias with atorvastatin will change to low dose rosuvastatin Ulcer of esophagus without bleeding 07/02/2023 Biliary dyskinesia 04/14/2023 Assessment & Plan (06/03/2023 3:09 PM CDT): Following with GI Stage 3a chronic kidney disease 03/24/2023 Assessment & Plan (06/05/2024 1:15 PM CDT): Following with nephrology Assessment & Plan (12/06/2023 8:44 AM CDT): Following with nephrology Assessment & Plan (07/16/2023 3:20 PM CDT): Following with nephrology Continue lisinopril Assessment & Plan (06/03/2023 3:10 PM CDT): Following with nephrology Continue lisinopril Assessment & Plan (03/24/2023 3:44 PM PATIENT SCHEDULER): With minimal proteinuria Continue xin Referral to nephrology Discussed low salt diet, focusing on plant proteins, maintaining hydration and limiting/avoiding NSAIDS Nausea and vomiting 12/21/2022 Assessment & Plan (03/23/2023 3:34 PM PATIENT SCHEDULER): Following with GI, reviewed note Upcoming EGD Assessment & Plan (12/21/2022 10:56 AM CDT): Intermittent nausea and vomiting for the past year, occurs every other week. No specific food triggers. -start PPI daily -we will order labs and ultrasound for further evaluation -schedule EGD -The risks (risks of bleeding, infection, perforation requiring surgery, missed polyps/cancer, dental injury, aspiration pneumonia, anesthesia complications such as drug reaction and cardiopulmonary complications including rare chance of ), benefits, and alternatives of the planned procedure were explained to the patient who understands and consents to having procedure done. Gastroesophageal reflux disease without esophagi tis 12/21/2022 Assessment & Plan (06/05/2024 1:15 PM CDT): On omeprazole Following with GI Assessment & Plan (03/23/2023 3:34 PM PATIENT SCHEDULER): On omeprazole Following with GI, reviewed note Upcoming EGD Assessment & Plan (12/21/2022 10:57 AM CDT): Chronic GERD, takes Pepcid p.r.n.. -start omeprazole 20 mg p.o. daily -RECOMMENDATIONS given include: anti-reflux maneuvers, Avoid acidic foods like oranges and tomatoes., avoidance of spicy foods, avoid eating 3-4 hours before bed, elevation of the head of the bed, and weight loss Rosacea 07/20/2022 Assessment & Plan (06/03/2023 3:29 PM CDT): stable Assessment & Plan (03/24/2023 3:47 PM PATIENT SCHEDULER): Continue minocycline 50mg daily Assessment & Plan (07/20/2022 8:37 AM CDT): Continue minocycline 50mg daily, could also consider changing to topical if well controlled Annual physical exam 07/17/2022 Assessment & Plan (06/05/2024 1:15 PM CDT): Reviewed PMH & FH Reviewed medications and supplements HCM: orders placed as needed Assessment & Plan (12/06/2023 9:04 AM CDT): Reviewed PMH & FH PHQ Screening reviewed Hearing/vision screening reviewed, referrals placed as needed Fall risk reviewed Reviewed medications and supplements Specialists: ticker maintainer, psychiatry/therapist & nephrology no evidence of cognitive impairment HCM: orders placed as needed Assessment & Plan (12/01/2022 4:03 PM CDT): Reviewed PMH & FH PHQ Screening reviewed Hearing/vision screening reviewed, referrals placed as needed Fall risk reviewed Reviewed medications and supplements Specialists: GI no evidence of cognitive impairment HCM: orders placed as needed Assessment & Plan (07/17/2022 11:04 AM CDT): Reviewed PMH & FH phq reviewed Reviewed medications and supplements HCM: orders placed as needed Primary hypertension 07/17/2022 Assessment & Plan (06/05/2024 1:15 PM CDT): Controlled continue hydrochlorothiazide & 5mg amlodipine Assessment & Plan (01/27/2024 3:36 PM PATIENT SCHEDULER): Controlled continue hydrochlorothiazide & 5mg amlodipine Assessment & Plan (12/06/2023 8:58 AM CDT): Controlled continue hydrochlorothiazide & 5mg amlodipine Assessment & Plan (08/13/2023 2:46 PM CDT): Controlled Discontinuing lisinopril 2/2 hyperkalemia will increase hydrochlorothiazide Assessment & Plan (07/16/2023 3:20 PM CDT): Uncontrolled Will start 12.5mg hydrochlorothiazide for concurrent peripheral edema and hyperkalemia Continue 10mg lisinopril for ckd Assessment & Plan (06/03/2023 3:10 PM CDT): Blood pressure controlled Continue 10mg lisinopril Assessment & Plan (03/23/2023 4:00 PM PATIENT SCHEDULER): Discussed could benefit from blood pressure <130/80 given CKD, but she would like to avoid increasing medication at this time Discussed diet/exercise Assessment & Plan (12/01/2022 4:01 PM CDT): Blood pressure controlled Continue 10mg lisinopril Assessment & Plan (07/17/2022 11:30 AM CDT): Blood pressure at goal, continue 10mg lisinopril Recurrent major depressive disorder, in full rem ission 07/17/2022 Assessment & Plan (06/05/2024 1:30 PM CDT): Controlled Continue wellbutrin and trintellix 20mg Assessment & Plan (12/06/2023 8:59 AM CDT): Following with psychiatrist and therapist On wellbutrin and trintellix 20mg Assessment & Plan (08/13/2023 2:47 PM CDT): Improved, but peristently uncontrolled Increase trintellix to 20mg Assessment & Plan (07/16/2023 3:28 PM CDT): Continue trintellix 10mg for another 4 weeks Assessment & Plan (06/03/2023 3:30 PM CDT): Uncontrolled Will d/c effexor and switch to trintellix, cross taper Assessment & Plan (03/23/2023 3:33 PM PATIENT SCHEDULER): Stable Continue effexor 150mg Assessment & Plan (12/01/2022 4:39 PM CDT): Stable Continue effexor 150mg Assessment & Plan (07/17/2022 11:30 AM CDT): Stable Consider decreasing effexor to 75mg when due for refill History of diabetes mellitus resolved following bariatric surgery 07/17/2022 Assessment & Plan (06/05/2024 1:34 PM CDT): A1c 6, improved Recommend healthy diet Continue to monitor History of gastric bypass 07/17/2022 Closed displaced fracture of proximal phalanx of left little finger 03/26/2022 Overview (03/26/2022): Added automatically from request for surgery [id number] Displaced fracture of distal phalanx of left ring finger, initial encounter for closed fracture 03/26/2022 Overview (03/26/2022): Added automatically from request for surgery [id number] Vitamin B12 deficiency (non anemic) 12/20/2020 Iron deficiency anemia 07/03/2020 Assessment & Plan (12/06/2023 9:04 AM CDT): Recent labs with mild anemia and adequate iron levels Following with heme Continue iron supplement Assessment & Plan (06/03/2023 3:09 PM CDT): Following with heme Continue iron supplement Assessment & Plan (03/23/2023 3:34 PM PATIENT SCHEDULER): Following with heme, reviewed note Continue iron supplement Immunizations Immunization Administration Dates Next Due Influenza, Quad, Adjuvantated, Intramuscular Influenza, Quadrivalent, Hig h Dose, Preservative Free, Intrr 12/01/2022,11/21/2021 Influenza, Quadrivalent, Rec ombinant, Egg Free, Preservative Free, Intramuscular 11/22/2018 Influenza, Quadrivalent, Spl it, Preservative Free, Intramuscular 01/18/2018 Influenza, Trivalent, High D ose, Split, Preservative Free, Intramuscular 12/06/2023 Influenza, Trivalent, Preservative Free, Intramu scular 11/20/2014 Pneumococcal Conjugate Pcv20 12/01/2022 Pneumococcal Polysaccharide PPV23 02/05/2021 ZOSTER LIVE 11/20/2014 Social History Tobacco Use Types Packs/Day Years Used Date Smoking Tobacco: Never Cigarettes Passive Smoke Exposure: Never Smokeless Tobacco: Never Tobacco Cessation:Counseling Given: Not Answered AUDIT-C Answer Date Recorded Q1: How often do you have a drink containing alc ohol? Monthly or less 06/05/2024 Q2: How many drinks containi ng alcohol do you have on a typical day when you are drinking? 1 or 2 06/05/2024 Q3: How often do you have si x or more drinks on one occasion? Never 06/05/2024 PHQ-2 Answer Date Recorded PHQ-2 Total Score (If total score is 3 or more points, staff should administer the PHQ-9) 0 12/06/2023 PHQ-9 Answer Date Recorded PHQ-9 Total Score 6 08/13/2023 Personal Safety Answer Date Recorded Have you ever been in or are you currently in a harmful physical or emotional relationship or is someone making you feel afraid or unsafe? Denies 01/28/2024 Comments No Sex and Gender Information Value Date Recorded Sex Assigned at Not on file Legal Sex Female 12:56 PM PATIENT SCHEDULER Gender Identity Female 06/23/2023 8:57 AM CDT Sexual Orientation Straight 06/23/2023 8: 57 AM CDT Last Filed Vital Signs Vital Sign Reading Time Taken Comments Blood Pressure 124/76 06/05/2024 1:06 PM CDT Pulse 70 06/05/2024 1:06 PM CDT Temperature 36.7 C (98 F) 06/05/2024 1:06 PM CDT Respiratory Rate 18 06/05/2024 1:06 PM CDT Oxygen Saturation 99% 06/05/2024 1:06 PM CDT Inhaled Oxygen Concentration - - Weight 60.5 kg (133 lb 6.4 oz) 06/05/2024 1:06 P M CDT Height 152.4 cm (5') 06/05/2024 1:06 PM CDT Body Mass Index 26.05 06/05/2024 1:06 PM CDT Plan of Treatment Not on file Medical Devices Implanted Type Area Machine Wedger Device Identifier Shelf Expiration Date Model / Serial / Lot [employer] Elzbieta .045in 9in Trocar Point Both Ends Orthopedic Wire 0530-382ns - [id number] Implanted:Qty: 2 on 04/06/2022 by Adam Dunlap MD at [facility] [employer] [id number] / / Synthes 3.5mm 2.9mm 46mm Self Tap Lock Stardrive Conical Head T15 Full 212.136 - [id number] Implanted:Qty: 1 on 01/28/2024 by Jailyn Mckenzie MD at [facility] Left: Humerus Synthes I 212.136 / / Synthes 3.5mm 2.9mm 42mm Self Tap Lock Stardrive Conical Head Full Thread 212.118 - [id number] Implanted:Qty: 2 on 01/28/2024 by Jailyn Mckenzie MD at [facility] Left: Humerus Synthes I 212.118 / / Synthes 3.5mm 2.9mm 36mm Self Tap Lock Stardrive Conical Head T15 Full 212.115 - [id number] Implanted:Qty: 1 on 01/28/2024 by Jailyn Mckenzie MD at [facility] Left: Humerus Synthes 212.115 / / Synthes 3.5mm 6mm 28mm 2.5mm Self Tap Small Hexagonal Socket Low Profile 204.828 - [id number] Implanted:Qty: 1 on 01/28/2024 by Jailyn Mckenzie MD at [facility] Left: Humerus Synthes 204.828 / / Synthes 3.5mm 2.9mm 28mm Self Tap Lock St[employer]rive Conical Head T15 Full 212.110 - [id number] Implanted:Qty: 2 on 01/28/2024 by Jailyn Mckenzie MD at [facility] Left: Humerus Synthes 212.110 / / Synthes 2.7mm 5mm 20mm 2.5mm Self Tap St[employer]rive Cortical T8 Screw Bone 202.880 - [id number] Implanted:Qty: 2 on 01/28/2024 by Jailyn Mckenzie MD at [facility] Left: Humerus Synthes 202.880 / / Synthes 2.7mm 5mm 22mm 2.5mm Self Tap St[employer]rive Cortical T8 Screw Bone 202.882 - [id number] Implanted:Qty: 1 on 01/28/2024 by Jailyn Mckenzie MD at [facility] Left: Humerus Synthes 202.882 / / Synthes Lcp Combi Philos Long [id number] 10 Hole Shaft Lock Compression 241.923 - [id number] Implanted:Qty: 1 on 01/28/2024 by Jailyn Mckenzie MD at [facility] Left: Humerus Synthes I 241.923 / / Synthes 3.5mm 6mm 24mm 2.5mm Self Tap Small Hexagonal Socket Low Profile 204.824 - [id number] Implanted:Qty: 2 on 01/28/2024 by Jailyn Mckenzie MD at [facility] Left: Humerus Synthes 204.824 / / Synthes 2.7mm 5mm 26mm 2.5mm Self Tap Spherical Head Small Hexagonal 202.826 - [id number] Implanted:Qty: 2 on 01/28/2024 by Jailyn Mckenzie MD at [facility] Left: Humerus Synthes 202.826 / / Synthes 3.5mm 6mm 22mm 2.5mm Self Tap Small Hexagonal Socket Low Profile 204.822 - [id number] Implanted:Qty: 2 on 01/28/2024 by Jailyn Mckenzie MD at [facility] Left: Humerus Synthes I 204.822 / / Explanted Type Area Machine Wedger Device Identifier Shelf Expiration Date Model / Serial / Lot Synthes 3.5mm 2.9mm 44mm Self Tap Lock Stardrive Conical Head T15 Full 212.134 - [id number] Explanted:Qty: 1 on 01/28/2024 by Jailyn Mckenzie MD at [facility] Left: Humerus Synthes 212.134 / / Synthes 3.5mm 2.9mm 32mm Self Tap Lock St[employer]rive Conical Head T15 Full 212.112 - [id number] Explanted:Qty: 1 on 01/28/2024 by Jailyn Mckenzie MD at [facility] Left: Humerus Synthes 212.112 / / Synthes 3.5mm 2.9mm 40mm Self Tap Lock St[employer]rive Conical Head T15 Full 212.117 - [id number] Explanted:Qty: 1 on 01/28/2024 by Jailyn Mckenzie MD at [facility] Left: Humerus Synthes 212.117 / / Synthes 3.5mm 6mm 26mm 2.5mm Self Tap Small Hexagonal Socket Low Profile 204.826 - [id number] Explanted:Qty: 2 on 01/28/2024 by Jailyn Mckenzie MD at [facility] Left: Humerus Synthes 204.826 / / Synthes 3.5mm 6mm 24mm 2.5mm Self Tap Small Hexagonal Socket Low Profile 204.824 - [id number] Explanted:Qty: 1 on 01/28/2024 by Jailyn Mckenzie MD at [facility] Left: Humerus Synthes 204.824 / / [employer] Elzbieta .062in 9in Trocar Point One [employer] Orthopedic Wire 1600-9625ns - [id number] Explanted:Qty: 3 on 01/28/2024 by Jailyn Mckenzie MD at [facility] Left: Humerus [employer] [id number] S / / Synthes 3.5mm 6mm 20mm 2.5mm Self Tap Small Hexagonal Socket Low Profile 204.820 - [id number] Explanted:Qty: 1 on 01/28/2024 by Jailyn Mckenzie MD at [facility] Left: Humerus Synthes 204.820 / / Synthes 3.5mm 2.9mm 38mm Self Tap Lock St[employer]rive Conical Head T15 Full 212.116 - [id number] Explanted:Qty: 1 on 01/28/2024 by Jailyn Mckenzie MD at [facility] Left: Humerus Synthes 212.116 / / Procedures Procedure Name Priority Date/Time Associated Diagnosis Comments POCT HEMOGLOBIN A1C Routine 06/05/2024 1 :57 PM CDT Elevated glucose XR HUMERUS LEFT 2 OR MORE VIEWS Schedule Routine, Read Routine (OP Routine) 04/26/2024 12:32 PM PATIENT SCHEDULER Closed displaced comminuted fracture of shaft of left humerus, initial encounter XR CHEST PA LATERAL 2 VIEWS Schedule YOSHI, Read YOSHI (Appt Today, Awaiting Results) 04/19/2024 1:33 PM PATIENT SCHEDULER Acute cough SCAN - LABS Routine 03/20/2024 COLONOSCOPY 06/28/2023 10:28 AM CDT HEPATITIS C ANTIBODY Routine 01/11/2023 9:13 AM PATIENT SCHEDULER Encounter for annual wellness visit (AWV) in Medicare patient DEXA AXIAL SKELETON BONE DENSITY 1 OR MORE SITES Schedule Routine, Read Routine (OP Routine) 11/25/2022 12:25 PM CDT Post-menopausal SCREENING MAMMOGRAM BILATERAL W JENSEN Schedule Routine, Read Routine (OP Routine) 08/21/2022 11:55 AM CDT Encounter for screening mammogram for malignant neoplasm of breast from Last 3 Months or Most Recently Relevant to Health Maintenance Results * POCT hemoglobin A1c (06/05/2024 1:57 PM CDT) Hemoglobin A1C, POC 6.0 4.0 - 5.6 % Blood 06/05/2024 1:57 PM CDT Zenaida Guido MD POINT OF CARE CASIMIRO T ORDERABLES Final Result * X-ray humerus left (04/26/2024 12:32 PM PATIENT SCHEDULER) Anatomical Region Laterality Modality Upper Extremities, Upper Arm Left Com puted Radiography 04/26/2024 12:4 6 PM PATIENT SCHEDULER Impressions 04/26/2024 12:46 PM PATIENT SCHEDULER 1. Healing, reduced and internally fixated fracture of the left humerus Electronically signed by: Mj Feliz MD Narrative 04/26/2024 12:46 PM PATIENT SCHEDULER EXAMINATION: XR HUMERUS LEFT 2 OR MORE VIEWS HISTORY: Left humerus fracture, follow-up FINDINGS: 2 radiographs of the left humerus are compared to 03/06/2024. There is a healing, reduced and internally fixated fracture of the proximal-mid left humeral shaft. The instrumentation is intact. Alignment is near-anatomic. Mild acromioclavicular joint osteoarthritis is noted. Procedure Note Fallon Feliz MD - 04/26/2024 EXAMINATION: XR HUMERUS LEFT 2 OR MORE VIEWS HISTORY: Left humerus fracture, follow-up FINDINGS: 2 radiographs of the left humerus are compared to 03/06/2024. There is a healing, reduced and internally fixated fracture of the proximal-mid left humeral shaft. The instrumentation is intact. Alignment is near-anatomic. Mild acromioclavicular joint osteoarthritis is noted. IMPRESSION: 1. Healing, reduced and internally fixated fracture of the left humerus Electronically signed by: Mj Feliz MD us Jailyn Mckenzie MD IMG XR PROCEDURES Final Re sult * XR Chest Pa Lateral 2 Views (04/19/2024 1:33 PM PATIENT SCHEDULER) Anatomical Region Laterality Modality Body, Chest N/A Digital Radiogra phy 04/19/2024 1:44 PM PATIENT SCHEDULER Narrative 04/19/2024 1:46 PM PATIENT SCHEDULER EXAM DESCRIPTION: XR CHEST PA LATERAL 2 VIEWS REASON FOR STUDY: cough Pt complains of cough, headache for about a week. No surgery to heart, lungs or chest. Non-smoker TECHNIQUE: 2 radiographic view(s) of the chest. COMPARISON: Chest radiograph 01/22/2024 FINDINGS: The cardiomediastinal silhouette appears normal. There is no airspace consolidation or pleural effusion. There is surgical hardware transfixing the left proximal humeral fracture. IMPRESSION: No acute findings. THIS IS AN ELECTRONICALLY VERIFIED FINAL REPORT 04/19/2024 1:46 PM - Electronically signed by Riccardo Brand M.D., JR T: Report ID: [id number] Reading Location: [id number] Procedure Note Riccardo Brand MD - 04/19/2024 EXAM DESCRIPTION: XR CHEST PA LATERAL 2 VIEWS REASON FOR STUDY: cough Pt complains of cough, headache for about a week. No surgery to heart,lungs or chest. Non-smoker TECHNIQUE: 2 radiographic view(s) of the chest. COMPARISON: Chest radiograph 01/22/2024 FINDINGS: The cardiomediastinal silhouette appears normal. There is no airspace consolidation or pleural effusion. There is surgical hardware transfixing the left proximal humeral fracture. IMPRESSION: No acute findings. THIS IS AN ELECTRONICALLY VERIFIED FINAL REPORT 04/19/2024 1:46 PM - Electronically signed by Riccardo Brand M.D., JR T: Report ID: [id number] Reading Location: [id number] us Keily MOTTA IMG XR PROCEDURES Final Result * SCAN - LABS (03/20/2024) us Historical Provider Final Res ult EXTERNAL LAB * Colonoscopy (06/28/2023 10:28 AM CDT) Anatomical Region Laterality Modality Other Narrative Procedure Note Ciro Buenrostro MD - 06/28/2023 10:28 AM CDT [facility] ENDOSCOPY Patient Name: Rosalie Patterson Procedure Date: 06/28/2023 10:28 AM Date of : 1955 Admit Type: Outpatient Age: 67 Gender: Female Attending MD: Ciro Buenrostro M.D. Room: [facility] ENDOSCOPY ROOM 06 Note Status: Finalized Procedure: Colonoscopy Indications: Screening for colorectal malignant neoplasm Referring MD: Zenaida Guido M.D. Providers: Ciro Buenrostro M.D. Medicines: Monitored Anesthesia Care Complications: No immediate complications. Estimated Blood Loss: Estimated blood loss: none. Procedure: Pre-Anesthesia Assessment: - Prior to the procedure, a History and Physicalwas performed, and patient medications and allergieswere reviewed. The risks and benefits of the procedureand the sedation options and risks were discussed withthe patient. All questions were answered and informed consent was obtained. Patient identification and proposed procedure were verified. After reviewingthe risks and benefits, the patient was deemed in satisfactory condition to undergo the procedure.The anesthesia plan was to use monitored anesthesiacare (MAC). Immediately prior to administration of medications, the patient was re-assessed foradequacy to receive sedatives. The heart rate, respiratory rate, oxygen saturations, blood pressure, adequacyof pulmonary ventilation, and response to care were monitored throughout the procedure. The physical status of the patient was re-assessed after the procedure. The benefits, risks and alternatives of theprocedure and sedation were discussed and informed consentwas obtained. All questions were answered. Please referto the signed informed consent document in the medical record. The scope was passed under direct vision.The [id number]-[id number] colonoscope was introduced through theanus and advanced to the cecum, identified byappendiceal orifice and ileocecal valve. The colonoscopy was performed without difficulty. The patient tolerated the procedure well. The quality of the bowel preparation was adequate. Scope withdrawal time was11 minutes. Prep was administered in a split dose. Findings: The perianal and digital rectal examinations were normal. A diminutive polyp was found in the hepatic flexure. The polyp was removed with a cold biopsy forceps. Resection and retrieval were complete. A diminutive polyp was found in the transverse colon. The polyp was removed with a cold biopsy forceps. Resection and retrieval were complete. The colon (entire examined portion) was moderately tortuous. Non-bleeding internal hemorrhoids were found during retroflexion. The hemorrhoids were small. The exam was otherwise without abnormality. Impression: - One diminutive polyp at the hepatic flexure,removed with a cold biopsy forceps. Resected andretrieved. - One diminutive polyp in the transverse colon, removed with a cold biopsy forceps. Resected and retrieved. - Tortuous colon. - Non-bleeding internal hemorrhoids. - The examination was otherwise normal. Recommendation: - Patient has a contact number available for emergencies. The signs and symptoms of potential delayed complications were discussed with thepatient. Return to normal activities tomorrow. Written discharge instructions were provided to thepatient. - High fiber diet. - Continue present medications. - Await pathology results. - Repeat colonoscopy in 5 years for surveillance. - Return to GI clinic as previously scheduled. Ciro Buenrostro M.D. Ciro Buenrostro M.D. 06/28/2023 11:05:48 AM . Number of Addenda: 0 Note Initiated On: 06/28/2023 10:28 AM Recognized by the [employer] for promoting quality in endoscopy Ciro Buenrostro MD ENDOSCOPY PROCEDURES Final Resul t * Hepatitis C antibody Blood (01/11/2023 9:13 AM PATIENT SCHEDULER) Hep C Ab Nonreactive Nonreactive CHAN AGUSTIN Comment: Interpretive Data Nonreactive: Antibodies to HCV not detected. Does NOT exclude the possibility of recent exposure to HCV. Equivocal: Equivocal for HCV antibodies. Supplemental molecular testing will be automatically performed to determine infection status in accordance with current CDC screening recommendations. Reactive: Positive for HCV antibodies. This may represent current or past HCV infection. Supplemental molecular testing will be automatically performed to determine current infection status in accordance with current CDC screening recommendations. Interpretive data was last revised on 2019. Blood 01/11/2023 9:13 AM PATIENT SCHEDULER 01/11/2023 12:50 PM PATIENT SCHEDULER Zenaida Guido MD LAB MICROBIOLOGY - GENERAL ORDERABLES Final Result CHAN AGUSTIN [address] [facility] Department [place] [address] * Dexa Axial Skeleton Bone Density 1 or 2 Site (11/25/2022 12:25 PM CDT) Anatomical Region Laterality Modality Body N/A Mammography 11/25/2022 3:42 PM CDT Narrative 11/25/2022 3:42 PM CDT EXAM DESCRIPTION: DEXA AXIAL SKELETON BONE DENSITY 1 OR MORE SITES REASON FOR STUDY: 67 y/o year old F with given history of: Postmenopausal status. Patient has taken/is taking vitamin-D and calcium. Machine Wedger/Model: Hologic Horizon A ([id number]/N [id number]) CLINICAL INFORMATION: Current height: 59 inches Maximum height: 61.5 inches Weight: 141 pounds Risk factors: None COMPARISON: None available FINDINGS: AP LUMBAR SPINE L1-L4: Total BMD is 1.082 g/cm2 T-score is 0.3 LEFT HIP: Total BMD is 0.704 g/cm2 T-score is -2.0 Femoral neck BMD is 0.587 g/cm2 T-score is -2.4 FRAX: 10 year risk for a major osteoporotic fracture is 13 %, 10 year risk for a hip fracture is 2.9 % IMPRESSION: Low bone mass REFERENCE: Bone mineral density: Normal (T-score above or = -1.0) Low bone mass (T-score between -1.0 and -2.5) replaces the previously used term osteopenia Osteoporosis (T-score = or below -2.5) Medical evaluation for secondary causes of low bone mineral density may be appropriate. FRAX is a World Health Organization validated fracture risk assessment tool that calculates a person's 10 year probability of a major osteoporosis related fracture and hip fracture. According to the National Osteoporosis Foundation guidelines, postmenopausal women and men age 50 or older with low bone mass and a 10 year probability of a major osteoporosis related fracture = or greater than 20% or a 10 year probability of a hip fracture = or greater than 3% should be considered for treatment. For further information, including treatment recommendations, please refer to the 2019 ISCD Official Positions (http://www.iscd.org) and the NOF's Clinician's Guide to Prevention and Treatment of Osteoporosis (http://www.nof.org/professionals/clinical-guidelines) THIS IS AN ELECTRONICALLY VERIFIED FINAL REPORT 11/25/2022 3:42 PM - Electronically signed by Kerry Dominguez M.D. TW: TW Report ID: [id number] Reading Location: [id number] Procedure Note Kerry Dominguez MD - 11/25/2022 EXAM DESCRIPTION: DEXA AXIAL SKELETON BONE DENSITY 1 OR MORE SITES REASON FOR STUDY: 67 y/o year old F with given history of:Postmenopausal status. Patient has taken/is taking vitamin-D and calcium. Machine Wedger/Model: [employer] Horizon A (S/N [id number]) CLINICAL INFORMATION: Current height: 59 inches Maximum height: 61.5 inches Weight: 141 pounds Risk factors: None COMPARISON: None available FINDINGS: AP LUMBAR SPINE L1-L4: Total BMD is 1.082 g/cm2 T-score is 0.3 LEFT HIP: Total BMD is 0.704 g/cm2 T-score is -2.0 Femoral neck BMD is 0.587 g/cm2 T-score is -2.4 FRAX: 10 year risk for a major osteoporotic fracture is 13 %, 10 year risk for ahip fracture is 2.9 % IMPRESSION: Low bone mass REFERENCE: Bone mineral density: Normal (T-score above or = -1.0) Low bone mass (T-score between -1.0 and -2.5) replaces thepreviously used term osteopenia Osteoporosis (T-score = or below -2.5) Medical evaluation for secondary causes of low bone mineral density may be appropriate. FRAX is a World Health Organization validated fracture risk assessmenttool that calculates a person's 10 year probability of a major osteoporosisrelated fracture and hip fracture. According to the National OsteoporosisFoundation guidelines, postmenopausal women and men age 50 or older with low bonemass and a 10 year probability of a major osteoporosis related fracture = or greater than 20% or a 10 year probability of a hip fracture = or greaterthan 3% should be considered for treatment. For further information, including treatment recommendations, please referto the 2019 ISCD Official Positions (http://www.iscd.org) and the NOF's Clinician's Guide to Prevention and Treatment of Osteoporosis (http://www.nof.org/professionals/clinical-guidelines) THIS IS AN ELECTRONICALLY VERIFIED FINAL REPORT 11/25/2022 3:42 PM - Electronically signed by Kerry Dominguez M.D. TW: BILLY Report ID: [id number] Reading Location: [id number] Zenaida Guido MD IM DXA PROCEDURE S Final Result * Screening Mammogram Bilateral W Jensen (08/21/2022 11:55 AM CDT) Anatomical Region Laterality Modality Breast Bilateral Mammography Impressions 08/25/2022 1:50 PM CDT BI-RADS ATLAS category (overall): 1 - Negative There is no mammographic evidence of malignancy. A 1 year screening mammogram is recommended. The patient has been or will be contacted. We recommend annual screening mammography for women at average risk of breast cancer beginning at age 40, based on guidelines of the [employer] (ACR Practice Parameter for the Performance of Screening and Diagnostic Mammography) and [employer]. For women with and elevated risk of breast cancer, please refer to the ACR Practice Parameter for specific screening recommendations. The patient will be entered into a reminder system with a target due date of 1 year for her next screening exam. Narrative 08/25/2022 1:50 PM CDT Screening Mammogram Bilateral W Jensen: 08/21/22 The study was acquired using full field digital technology and interpreted from soft copy. 2D digital mammographic views, as well as 3D digital tomosynthesis were performed in the CC and MLO projections. CLINICAL: Encounter for screening mammogram for malignant neoplasm of breast. No relevant medical history has been documented for this patient. History of breast cancer in Mother's Sister, Paternal Grandmother. COMPARISONS: 05/15/2020 Breast Imaging Screening Outside Reference 07/09/2017 Breast Imaging Screening Outside Reference 05/21/2015 Breast Imaging Screening Outside Reference 05/24/2012 Breast Imaging Diagnostic Outside Reference 11/03/2011 Breast Imaging US Outside Reference 11/03/2011 Breast Imaging Diagnostic Outside Reference 10/27/2011 Breast Imaging Screening Outside Reference BREAST TISSUE: The breasts have scattered areas of fibroglandular density. FINDINGS: There is no new suspicious finding in either breast on mammogram. 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
--- OUTSIDE RECORDS SUMMARY | 2024-06-16 09:24 | XMS_ITS | Clinical Summary ---
Author Organization 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 Name Role Phone Unavailable Primary Care Provider Unavailabl e Social History Tobacco Use Types Packs/Day Years Used Date Smoking Tobacco: Never Assessed Comments Unknown Sex and Gender Information Value Date Recorded Sex Assigned at Not on file Legal Sex Female 8:32 PM CDT Gender Identity Not on file Sexual Orientation Not on file Plan of Treatment Health Maintenance Due Date Last Done Comments Colorectal Cancer Screening Colonoscopy (10 Years) 1955 Hepatitis C 11/02/1971 DTaP, Tdap and Td Vaccines ( 1 - Tdap) 1972 Mammogram Screening 1993 Zoster Vaccines (1 of 2) 11/02/2003 Dexa Scan (General) 2018 Pneumococcal Vaccine: 65+ Ye ars (1 of 1 - PCV) 2018 COVID-19 Vaccine ( - 2023-2 5 season) 2023 RSV Immunization or 60+ Years (1 - 1-dose 75+ series) 2028 Meningococcal B Vaccine Aged Out No l onger eligible based on patient's age to complete this topic Meningococcal Vaccine Aged Out No roxy melanie eligible based on patient's age to complete this topic RSV Immunizations Under 20 Months Aged Out No longer eligible based on patient's age to complete this topic
--- OUTSIDE RECORDS SUMMARY | 2024-06-16 09:24 | XMS_ITS | Clinical Summary ---
Author Organization [facility] Address [address] [place] [address] Care Team Providers Care Cop Winder Name Role Phone Zenaida Guido MD Primary Care Pro vider Man Miller MD Unavailable [phone] Allergies Active Allergy Reactions Criticality Noted Date [...] 024 Assessment & Plan (01/27/2024 3:35 PM MALT HOUSE KILN OPERATOR): Reviewed ED note and orthopedics note, upcoming [...] lisinopril Assessment & Plan (03/24/2023 3:44 PM MALT HOUSE KILN OPERATOR): With minimal proteinuria Continue xin Referral to nephrology Discussed low salt diet, focusing on plant proteins, maintaining hydration and limiting/avoiding NSAIDS Nausea and vomiting 12/21/2022 Assessment & Plan (03/23/2023 3:34 PM MALT HOUSE KILN OPERATOR): Following with GI, reviewed note Upcoming EGD [...] GI Assessment & Plan (03/23/2023 3:34 PM MALT HOUSE KILN OPERATOR): On omeprazole Following with GI, reviewed note [...] stable Assessment & Plan (03/24/2023 3:47 PM MALT HOUSE KILN OPERATOR): Continue minocycline 50mg daily Assessment & Plan [...] risk reviewed Reviewed medications and supplements Specialists: cerner analyst, psychiatry/therapist & nephrology no evidence of cognitive impairment HCM: orders placed as needed Assessment & Plan (12/01/2022 4:03 PM CDT): Reviewed PMH & PHQ Screening reviewed Hearing/vision screening reviewed, referrals placed as needed Fall risk reviewed Reviewed medications and supplements Specialists: GI no evidence of cognitive impairment HCM: orders placed as needed Assessment & Plan (07/17/2022 11:04 AM CDT): Reviewed PMH & phq reviewed Reviewed medications and supplements HCM: orders placed as needed Primary hypertension 07/17/2022 Assessment & Plan (06/05/2024 1:15 PM CDT): Controlled continue hydrochlorothiazide & 5mg amlodipine Assessment & Plan (01/27/2024 3:36 PM MALT HOUSE KILN OPERATOR): Controlled continue hydrochlorothiazide & 5mg amlodipine Assessment [...] lisinopril Assessment & Plan (03/23/2023 4:00 PM MALT HOUSE KILN OPERATOR): Discussed could benefit from blood pressure <130/80 [...] taper Assessment & Plan (03/23/2023 3:33 PM MALT HOUSE KILN OPERATOR): Stable Continue effexor 150mg Assessment & Plan [...] (03/26/2022): Added automatically from request for surgery [id number] Displaced fracture of distal phalanx of left ring finger, initial encounter for closed fracture 03/26/2022 Overview (03/26/2022): Added automatically from request for surgery [id number] Vitamin B12 deficiency (non anemic) 12/20/2020 Iron deficiency anemia 07/03/2020 Assessment & Plan (12/06/2023 9:04 AM CDT): Recent labs with mild anemia and adequate iron levels Following with heme Continue iron supplement Assessment & Plan (06/03/2023 3:09 PM CDT): Following with heme Continue iron supplement Assessment & Plan (03/23/2023 3:34 PM MALT HOUSE KILN OPERATOR): Following with heme, reviewed note Continue iron supplement Encounters Date Type Department Care Team Description 06/05/2024 1:00 PM CDT Office Visit [facility] Primary Care at [address] [address] Zenaida Guido MD Annual physical exam (Primary Dx); Encounter for screening mammogram for breast cancer; Post-menopausal; Skin cancer screening; History of diabetes mellitus resolved following bariatric surgery; Primary hypertension; Dyslipidemia; Stage 3a chronic kidney disease (HCC); Gastroesophageal reflux disease without esophagitis; Recurrent major depressive disorder, in full remission; Elevated glucose 05/30/2024 1:30 PM CDT Office Visit [facility] Nephrology at [address] [phone] Robson Cedeño MD Stage 3a chronic kidney disease (HCC) (Primary Dx); Benign hypertensive kidney disease with chronic kidney disease stage I through stage IV, or unspecified(403.10); Anemia in stage 3a chronic kidney disease (HCC); Secondary hyperparathyroidism 05/29/2024 Telephone [facility] Primary Care at [address] [place] [address] Zenaida Guido MD 04/26/2024 1:40 PM MALT HOUSE KILN OPERATOR Office Visit [facility] Orthopaedic Surgery [address] [place] [address] [place] [address] Jailyn Mckenzie MD Closed displaced comminuted fracture of shaft of left humerus, initial encounter (Primary Dx) 04/26/2024 12:20 PM MALT HOUSE KILN OPERATOR - 04/26/2024 11:59 PM MALT HOUSE KILN OPERATOR Hospital Encounter [facility] [address] [place] [address] Closed displaced comminuted fracture of shaft of left humerus, initial encounter Discharge Disposition: Discharge to home or self care 04/19/2024 12:45 PM MALT HOUSE KILN OPERATOR Ancillary Procedure [facility] Imaging at [address] [phone] Acute cough 04/19/2024 12:30 PM MALT HOUSE KILN OPERATOR Office Visit [facility] Convenient Care at [address] [phone] Keily Dailey PA Acute cough (Primary Dx) from Last 3 Months Immunizations Immunization Administration Dates Next Due Influenza, [...] Pneumococcal Polysaccharide PPV23 02/05/2021 ZOSTER LIVE 11/20/2014 Surgical History Surgery Date Site/Laterality Comments SECTION 12/06/1978 - 01/05/1979 SECTION 03/08/1984 - 03/07/1985 MENISCUS SURGERY 03/08/1997 - 03/07/1998 Right ROTATOR CUFF REPAIR 03/08/2020 - 03/07/2021 Right GASTRIC BYPASS 03/08/2012 - 03/07/2013 COLONOSCOPY 03/08/2012 - 03/07/2013 N/A & 2023 hx polyps ESOPHAGOGASTRODUODENOSCOPY 03/08/2012 - 03/07/2013 x 2 FINGER SURGERY 03/08/2021 - 04/07/2021 Left Pinky Finger GALLBLADDER SURGERY 04/08/2023 - 05/06/2023 FRACTURE SURGERY CHOLECYSTECTOMY 05/04/2023 BARIATRIC SURGERY 2011) Medical History Medical History Date Comments Hypertension Dxd 2001 History of iron deficiency anemia Last iron infusion ~09/2021; Followed by cerner analyst at [facility] History of diabetes mellitus DM dxd ~2001-- Pt stopped checking BS at home after gastric bypass (previously on metformin only) Depression Type 2 diabetes mellitus (HCC) Nausea and vomiting History of gastroesophageal reflux (GERD) Anemia Stage 3a chronic kidney dise ase (CKD) (HCC) Hyperlipidemia GERD (gastroesophageal reflux disease) Sleep apnea Insomnia Menopause Family History Medical History Relation Name Comments Alzheimer's disease Father Burke Owen Alzheimer's disease Mother Yang Owen Breast cancer Mother's Sister Breast cancer Paternal Grandmother Anesthesia problems Neg Hx Relation Name Status Comments Father Burke Owen Mother Yang Owen Mother's Sister Paternal Grandmother Social History Tobacco Use Types Packs/Day Years [...] on file Legal Sex Female 12:56 PM MALT HOUSE KILN OPERATOR Gender Identity Female 06/23/2023 8:57 AM CDT Sexual Orientation Straight 06/23/2023 8: 57 AM CDT Obstetrics History Para Term AB IAB SAB Ectopic Multiple Livin g Live Births 2 2 2 Date Outcome GA Total Labor Labor/2nd/3rd Weight Sex Type Anes PTL Alba A1 A5 Name Clin Term Term Last Filed Vital Signs Vital Sign Reading [...] 06/05/2024 1:06 PM CDT Plan of Treatment Health Maintenance Due Date Last Done Comments DTaP/Tdap/Td Vaccine (1 - Tdap) 1966 Zoster Vaccine (2 of 3) 01/15/2015 11/20/2014 Breast Cancer Screening-Mammogram 08/22/2023 023, 08/21/2022 Covid-19 Vaccine (2023-2 5 season) 2023 10/20/2022, 12/31/2021, 01/24/2021, Additional history exists Osteoporosis Screening-Bone Density Scan 11/25/2024 11/25/2022, 11/25/2022 Depression Screening 12/05/2024 12/06/2023, 08/13/2023, 08/13/2023, Additional history exists Fall Risk Assessment 01/25/2025 01/26/2024, 12/06/2023, 12/01/2022 Well Visit 65+ 06/05/2025 06/05/2024, 11/08, 12/01/2022, Additional history exists Colon Cancer Screening-Colonoscopy 06/27/2028 06/28/2023 Pneumococcal vaccine 65+ Completed 12/01/2022, 12/0 03/2020 Hepatitis C Screening Completed 01/11/2023 Influenza Vaccine Completed 12/06/2023, , 11/21/2021, Additional history exists Hepatitis B Screening Discontinued Medical Devices Implanted Type Area Hand Potter Device Identifier Shelf Expiration Date Model / Serial / Lot [employer] Elzbieta .045in 9in Trocar Point Both Ends Orthopedic Wire 1600-945ns - [id number] Implanted:Qty: 2 on 04/06/2022 by Adam Dunlap MD at [facility] [employer] [id number] / / Synthes 3.5mm 2.9mm 46mm Self Tap Lock Stardrive Conical Head T15 Full 212.136 - [id number] Implanted:Qty: 1 on 01/28/2024 by Jailyn Mckenzie MD at [facility] Left: Humerus Synthes I 212.136 / / Synthes 3.5mm 2.9mm 42mm Self Tap Lock Stardrive Conical Head Full Thread 212.118 - [id number] Implanted:Qty: 2 on 01/28/2024 by Jailyn Mckenzie MD at [facility] Left: Humerus Synthes I 212.118 / / Synthes 3.5mm 2.9mm 36mm Self Tap Lock Stardrive Conical Head T15 Full 212.115 - [id number] Implanted:Qty: 1 on 01/28/2024 by Jailyn Mckenzie MD at [facility] Left: Humerus Synthes 212.115 / / Synthes 3.5mm 6mm 28mm 2.5mm Self Tap Small Hexagonal Socket Low Profile 204.828 - [id number] Implanted:Qty: 1 on 01/28/2024 by Jailyn Mckenzie MD at [facility] Left: Humerus Synthes 204.828 / / Synthes 3.5mm 2.9mm 28mm Self Tap Lock Stardrive Conical Head T15 Full 212.110 - [id number] Implanted:Qty: 2 on 01/28/2024 by Jailyn Mckenzie MD at [facility] Left: Humerus Synthes 212.110 / / Synthes 2.7mm 5mm 20mm 2.5mm Self Tap Stardrive Cortical T8 Screw Bone 202.880 - [id number] Implanted:Qty: 2 on 01/28/2024 by Jailyn Mckenzie MD at [facility] Left: Humerus Synthes 202.880 / / Synthes 2.7mm 5mm 22mm 2.5mm Self Tap Stardrive Cortical T8 Screw Bone 202.882 - [id number] Implanted:Qty: 1 on 01/28/2024 by Jailyn Mckenzie MD at [facility] Left: Humerus Synthes 202.882 / / Synthes Lcp Combi Philos Long 030n16o3.7mm 10 Hole Shaft Lock Compression 241.923 - [id number] Implanted:Qty: 1 on 01/28/2024 by Jailyn Mckenzie MD at [facility] Left: Humerus Synthes I 241.923 / / Synthes 3.5mm 6mm 24mm 2.5mm Self Tap Small Hexagonal Socket Low Profile 204.824 - [id number] Implanted:Qty: 2 on 01/28/2024 by Jailyn Mckenzie MD at [facility] Left: Humerus Synthes 204.824 / / Synthes 2.7mm 5mm 26mm 2.5mm Self Tap Spherical Head Small Hexagonal 202.826 - [id number] Implanted:Qty: 2 on 01/28/2024 by Jailyn Mckenzie MD at [facility] Left: Humerus Synthes 202.826 / / Synthes 3.5mm 6mm 22mm 2.5mm Self Tap Small Hexagonal Socket Low Profile 204.822 - [id number] Implanted:Qty: 2 on 01/28/2024 by Jailyn Mckenzie MD at [facility] Left: Humerus Synthes I 204.822 / / Explanted Type Area Hand Potter Device Identifier Shelf Expiration Date Model / Serial / Lot Synthes 3.5mm 2.9mm 44mm Self Tap Lock Stardrive Conical Head T15 Full 212.134 - [id number] Explanted:Qty: 1 on 01/28/2024 by Jailyn Mckenzie MD at [facility] Left: Humerus Synthes 212.134 / / Synthes 3.5mm 2.9mm 32mm Self Tap Lock Stardrive Conical Head T15 Full 212.112 - [id number] Explanted:Qty: 1 on 01/28/2024 by Jailyn Mckenzie MD at [facility] Left: Humerus Synthes 212.112 / / Synthes 3.5mm 2.9mm 40mm Self Tap Lock Stardrive Conical Head T15 Full 212.117 - [id number] Explanted:Qty: 1 on 01/28/2024 by Jailyn Mckenzie MD at [facility] Left: Humerus Synthes 212.117 / / Synthes 3.5mm 6mm 26mm 2.5mm Self Tap Small Hexagonal Socket Low Profile 204.826 - [id number] Explanted:Qty: 2 on 01/28/2024 by Jailyn Mckenzie MD at [facility] Left: Humerus Synthes 204.826 / / Synthes 3.5mm 6mm 24mm 2.5mm Self Tap Small Hexagonal Socket Low Profile 204.824 - [id number] Explanted:Qty: 1 on 01/28/2024 by Jailyn Mckenzie MD at [facility] Left: Humerus Synthes 204.824 / / [employer] Elzbieta .062in 9in Trocar Point One End Orthopedic Wire 1600-9625ns - [id number] Explanted:Qty: 3 on 01/28/2024 by Jailyn Mckenzie MD at [facility] Left: Humerus [employer] [id number] S / / Synthes 3.5mm 6mm 20mm 2.5mm Self Tap Small Hexagonal Socket Low Profile 204.820 - [id number] Explanted:Qty: 1 on 01/28/2024 by Jailyn Mckenzie MD at [facility] Left: Humerus Synthes 204.820 / / Synthes 3.5mm 2.9mm 38mm Self Tap Lock Stardrive Conical Head T15 Full 212.116 - [id number] Explanted:Qty: 1 on 01/28/2024 by Jailyn Mckenzie MD at [facility] Left: Humerus Synthes 212.116 / / Procedures Procedure Name Priority Date/Time Associated Diagnosis Comments POCT HEMOGLOBIN A1C Routine 06/05/2024 1 :57 PM CDT Elevated glucose XR HUMERUS LEFT 2 OR MORE VIEWS Schedule Routine, Read Routine (OP Routine) 04/26/2024 12:32 PM MALT HOUSE KILN OPERATOR Closed displaced comminuted fracture of shaft of left humerus, initial encounter XR CHEST PA LATERAL 2 VIEWS Schedule YOSHI, Read YOSHI (Appt Today, Awaiting Results) 04/19/2024 1:33 PM MALT HOUSE KILN OPERATOR Acute cough SCAN - LABS Routine 03/20/2024 COLONOSCOPY 06/28/2023 10:28 AM CDT HEPATITIS C ANTIBODY Routine 01/11/2023 9:13 AM MALT HOUSE KILN OPERATOR Encounter for annual wellness visit (AWV) in [...] 5.6 % Blood 06/05/2024 1:57 PM CDT us Zenaida Guido MD POINT OF CARE CASIMIRO T ORDERABLES Final Result * X-ray humerus left (04/26/2024 12:32 PM MALT HOUSE KILN OPERATOR) Anatomical Region Laterality Modality Upper Extremities, Upper Arm Left Com puted Radiography 04/26/2024 12:4 6 PM MALT HOUSE KILN OPERATOR Impressions 04/26/2024 12:46 PM MALT HOUSE KILN OPERATOR 1. Healing, reduced and internally fixated fracture of the left humerus Electronically signed by: Mj Feliz MD Narrative 04/26/2024 12:46 PM MALT HOUSE KILN OPERATOR EXAMINATION: XR HUMERUS LEFT 2 OR MORE [...] Pa Lateral 2 Views (04/19/2024 1:33 PM MALT HOUSE KILN OPERATOR) Anatomical Region Laterality Modality Body, Chest N/A Digital Radiogra phy 04/19/2024 1:44 PM MALT HOUSE KILN OPERATOR Narrative 04/19/2024 1:46 PM MALT HOUSE KILN OPERATOR EXAM DESCRIPTION: XR CHEST PA LATERAL 2 [...] Riccardo Brand M.D., JR T: Report ID: [id number] Reading Location: [id number] Procedure Note Riccardo Brand MD - 04/19/2024 [...] PM - Electronically signed by Riccardo Brand M.D. JR T: Report ID: [id number] Reading Location: [place] [address] us Keily MOTTA IMG XR PROCEDURES Final Result * SCAN - LABS (03/20/2024) us Historical Provider Final Res ult EXTERNAL LAB * Colonoscopy (06/28/2023 10:28 AM CDT) Anatomical Region Laterality Modality Other Narrative Procedure Note Ciro Buenrostro MD - 06/28/2023 10:28 AM CDT [facility] GI ENDOSCOPY Patient Name: Rosalie Patterson Procedure Date: 06/28/2023 10:28 AM Date of : 1955 Admit Type: Outpatient Age: 67 Gender: Female Attending MD: Ciro Buenrostro M.D. Room: [facility] ENDOSCOPY ROOM 06 Note Status: Finalized Procedure: [...] The scope was passed under direct vision.The [id number]-VS523B colonoscope was introduced through theanus and advanced [...] On: 06/28/2023 10:28 AM Recognized by the [place] [employer] for promoting quality in endoscopy Ciro Buenrostro MD ENDOSCOPY PROCEDURES Final Resul t * Hepatitis C antibody Blood (01/11/2023 9:13 AM MALT HOUSE KILN OPERATOR) Hep C Ab Nonreactive Nonreactive CHAN AGUSTIN [...] revised on 2019. Blood 01/11/2023 9:13 AM MALT HOUSE KILN OPERATOR 01/11/2023 12:50 PM MALT HOUSE KILN OPERATOR us Zenaida Guido MD LAB MICROBIOLOGY - GENERAL ORDERABLES Final Result Performing Organization Address City/State/ZIP Co va Phone Number [facility] [phone] [facility] [place] [address] * Dexa Axial Skeleton Bone Density 1 or 2 Site (11/25/2022 12:25 PM CDT) Anatomical Region Laterality Modality Body N/A Mammography 11/25/2022 3:42 PM CDT Narrative 11/25/2022 3:42 PM CDT EXAM DESCRIPTION: DEXA AXIAL SKELETON BONE DENSITY 1 OR MORE SITES REASON FOR STUDY: 67 y/o year old F with given history of: Postmenopausal status. Patient has taken/is taking vitamin-D and calcium. Hand Potter/Model: Procam TV A (S/N [id number]) CLINICAL INFORMATION: Current height: 59 inches Maximum [...] Kerry Dominguez M.D. TW: TW Report ID: [id number] Reading Location: [id number] Procedure Note Kerry Dominguez MD - 11/25/2022 EXAM DESCRIPTION: DEXA AXIAL SKELETON BONE DENSITY 1 OR MORE SITES REASON FOR STUDY: 67 y/o year old F with given history of:Postmenopausal status. Patient has taken/is taking vitamin-D and calcium. Hand Potter/Model: [employer] [place] Purification A (S/N [id number]) CLINICAL INFORMATION: Current height: 59 inches Maximum [...] Kerry Dominguez M.D. TW: TW Report ID: [id number] Reading Location: [place] [address] Zenaida Guido MD IMG DXA PROCEDURE S Final Result * Screening [...] age 40, based on guidelines of the [place] [employer] (ACR Practice Parameter for the Performance of Screening and Diagnostic Mammography) and [place]. For women [...] suspicious finding in either breast on mammogram. Zenaida Guido MD IMG MAMMO PROCEDU RES Final Result from Last 3 Months or Most Recently Relevant to Health Maintenance Insurance UHC MEDICARE ADVANTAGE UHC MEDICARE ADVANTAGE [facility] MEDICARE ADVANTAGE Care Teams Cop Winder Relationship Specialty Start Date End Date Zenaida Guido MD PCP - General Family Medicine 07/17/22 [place] [id number] [address] [facility] [address] [address] Surgeon General Surgery 05/04/23
[2024-06-16 10:56] LABS: Iron 108 ug/dL (37-170)
[2024-06-16 11:06] LABS: Percent Iron Saturation 41 % (20-50)
[2024-06-16 12:01] LABS: Folic Acid 16.6 ng/mL (2.76->20)
== END 2024-06-16 09:06 | disposition home or self-care (01) ==
LOC: ANHLAB 09:06
PROVIDERS: Visit Provider Internal Medicine Hematology & Oncology
DX: D64.9 Anemia, unspecified (principal)
CPT/HCPCS: 36415; 82607; 82728; 82746; 83540; 83550; 85027

== ENCOUNTER 2025-01-09 13:56 | Outpatient (CLI) | payer MEDICARE, SELFPAY ==
[2025-01-09 14:12] LABS: Hematocrit 38.1 % (37.0-47.0); Hemoglobin 12.1 g/dL (12.0-15.0); Immature Granulocyte Percent A 0.2 % (0-0.5); Lymphocytes Absolute Auto 1.10 K/mm3 (0.9-3.2); Mean Corpuscular HGB Conc 31.8 g/dl (32-36); Mean Corpuscular Hemoglobin 28.9 pg (26-34); Mean Corpuscular Volume 91.1 fl (80-100); Nucleated Red Blood Cells Absolute Auto 0.000 K/mm3 (0.0-0.012); Nucleated Red Blood Cells Perc 0.0 % (0.0-0.2); Platelet Count Result 230 k/mm3 (150-375); Red Blood Count 4.18 M/mm3 (4.2-5.4); White Blood Count 4.8 K/mm3 (4.5-10.0)
--- OUTSIDE RECORDS SUMMARY | 2025-01-09 15:37 | XMS_ITS | Clinical Summary ---
Author Organization [facility] Address [address] [place] [phone] Care Team Providers Care Corporate Quality Engineer Name Role Phone Unavailable Primary Care Provider [...] 1 - Tdap) 1972 Mammogram Screening 1993 Pneumococcal Vaccine: 50+ Ye ars (1 of 1 - PCV) 11/02/2003 Zoster Vaccines (1 of 2) 11/02/2003 Dexa Scan (General) 2018 COVID-19 Vaccine ( - 2024-2 6 season) 2024 Influenza Adult (#1) 2024 RSV Immunization or 60+ Years (1 - 1-dose 75+ series) 2028 Hepatitis A Vaccines Aged Out No long er eligible based on patient's age to complete this topic Meningococcal B Vaccine Aged Out No l onger eligible based on patient's age to complete this topic Meningococcal Vaccine Aged Out No roxy melanie eligible based on patient's age to complete this topic RSV Immunizations Under 20 Months Aged Out No longer eligible based on patient's age to complete this topic
--- OUTSIDE RECORDS SUMMARY | 2025-01-09 15:37 | XMS_ITS | Encounter Summary ---
Author Organization [facility] [employer] Address [address] [place] [address] Care Team Providers Care Senior Product Development Engineer Name Role Phone Zenaida Guido MD Primary Care Pro vider Reason for Visit * Reason Onset Date Comments labs for appt 01/09/2025 Encounter Details Date Type Department Care Team (Late Contact Info) Description 01/09/2025 Telephone [facility] Oncology and Hematology - Marco A [address] [facility] [address] [place] [address] Zohu Garnica MD [address] [place] [address] labs for appt Social History Tobacco Use Types Packs/Day Years Used Date Smoking Tobacco: Never Smokeless Tobacco: Never Alcohol Use Standard Drinks/Week Comments Yes 0 (1 standard drink = 0.6 oz pur e alcohol) Comments Unknown Sex and Gender Information Value Date Recorded Sex Assigned at Not on file Legal Sex Female 1:40 PM CDT Gender Identity Not on file Sexual Orientation Not on file documented as of this encounter Miscellaneous Notes * Telephone Encounter - Sandhya Rodriguez - 01/09/2025 10:40 AM CST LVM for patient regarding labs for her appointment tomorrow. She would need to get those labs done today for her appointment tomorrow. NICAL RESEARCH SCIENTIST documented in this encounter Plan of Treatment Upcoming Encounters Date Type Department Care Team (Late Contact Info) Description 01/10/2025 2:45 PM TECHNICAL RESEARCH SCIENTIST Office Visit [facility] Oncology and Hematology - Marco A [address] [facility] [address] [place] [address] Zhou Garnica MD [address] [place] [address] documented as of this encounter Visit Diagnoses Not on filedocumented in this encounter Care Teams Senior Product Development Engineer Relationship Specialty Start Date End Date Zenaida Guido MD PCP - General Family Practice 08/27/22 documented as of this encounter
--- OUTSIDE RECORDS SUMMARY | 2025-01-09 15:37 | XMS_ITS | Patient Health Record ---
Author Organization [facility] [employer] Address [address] [facility] [address] [place] [address] Care Team Providers Care Director Medical Name Role Phone Zenaida Guido MD Primary Care Provider Fallon Salas Unavailable [phone] Allergies No Known Allergies Reason For Referral No Information Medications Medication SIG (Take, Route, Frequency, Duration) Notes Start Date End Date Status Ezetimibe 10 MG Tablet Oral; Duration: 9 0 Days Active buPROPion HCl ER (XL) 150 MG Tablet Extended Release 24 Hour 1 tablet in the morning Orally Once a day; Duration: 90 days Active Trintellix 20 MG Tablet Oral; Duration: 90 Days Active hydroCHLOROthiazide 25 MG Tablet Oral; Duration: 90 Days Active amLODIPine Besylate 5 MG Tablet Oral; Du ration: 100 Days Active buPROPion HCl ER (XL) 150 MG Tablet Extended Release 24 Hour Oral; Duration: 30 Days Active oxyCODONE HCl 5 MG Tablet TAKE 1 TABLET BY MOUTH EVERY 4 HOURS NEEDED FOR PAIN Oral; Duration: 2 Days Active HYDROcodone-Acetaminophen 5- 325 MG Tablet TAKE 1 TABLET BY MOUTH EVERY 6 HOURS NEEDED FOR PAIN Oral; Duration: 7 Days Active Trintellix 20 MG Tablet 1 tablet Orally Once a day; Duration: 90 days Active Rosuvastatin Calcium 5 MG Tablet Oral; Duration: 90 Days Active Ginkgo Biloba 120 MG Capsule as directed Orally Active Social History Tobacco Use: Social History Observation Description Date Details (start date - stop date) Never Smoker NA - NA Sex Assigned At : Social History Observation Description Sex Assigned At Female Social History Miscellaneous: Social Info Question Answer Notes Safety issues: Are there any firearms in the house? No Social History Social Info Question Answer Notes Household: Marital Status: Number of Adults in household: 2 Number of Children in Household: 0 Level of Education: Finished College Drug/Alcohol: Social Info Question Answer Notes Drugs Have you used drugs other than those for medical reasons in the past 12 months? No AUDIT-C (Standard) Points 0 Did you have a drink containing alcohol in the p ast year? Yes How often did you have six or more drinks on one occasion in the past year? Never (0 point) How many drinks did you have on a typical day when you were drinking in the past year? 1 or 2 drinks (0 point) How often did you have a drink containing alcohol in the past year? 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 Den ies Do you drink alcohol? Yes, maybe once a month Encounters Encounter Location Date Provider Diagnosis [address] [address] 02/11/2024 Thena Vito Episode of recurrent major depressive disorder, unspecified depression episode severity F33.[address] [address] 04/25/2024 Thena Vito Episode of recurrent major depressive disorder, unspecified depression episode severity F33.9 Assessments Encounter Date Diagnosis (ICD Code) Assessment Notes Treatment Notes Treatment Clinical Notes Section Notes 02/11/2024 Episode of recurrent major depressive disorder, unspecified depression episode severity (ICD-10 - F33.9) 04/25/2024 Episode of recurrent major depressive disorder, unspecified depression episode severity (ICD-10 - F33.9) Plan Of Treatment No Information Insurance Providers Payer Name Payer Address Payer Phone Subscriber Number Group Number Insured Name Patient Relationship to Insured Coverage Start Date Coverage End Date [facility] [address] [place] [phone] [id number] Kalpana Patterson Self - patient is the [...]
--- OUTSIDE RECORDS SUMMARY | 2025-01-09 15:37 | XMS_ITS | Clinical Summary ---
Author Organization 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 Active amLODIPine (NORVASC) 5 mg tablet Take [...] Encounters Date Type Department Care Team Description 01/09/[address] [facility] Oncology and Hematology - [place] [address] [place] [address] Zhou Garnica MD labs for appt 12/27/2024 External Device Data [facility]STRACTION Provider, Abstract 12/26/2024 External Device Data [facility] Provider, Abstract 11/28/2024 External Device Data [facility] [place] Provider, Abstract 11/21/2024 External Device Data [facility] [place] Provider, Abstract 11/14/2024 External Device Data [facility] [place] Provider, Abstract 10/16/[address] [facility] Oncology and Hematology - [place] [address] [place] [address] Arlet Flor RN Lab Results 10/13/[address] [facility] Oncology and Hematology - [place] [address] [place] [address] Zhou Garnica MD Fatigue 10/13/[address] [facility] Oncology and Hematology - [place] [address] [place] [address] Zhou Garnica MD Labs Only from Last 3 Months Family History Relation [...] Comments Blood Pressure 124/70 03/22/2024 10:57 AM CAREER DEVELOPMENT DIRECTOR Pulse 66 03/22/2024 10:57 AM CAREER DEVELOPMENT DIRECTOR Temperature 36.9 C (98.5 F) 03/22/2024 10:57 AM CAREER DEVELOPMENT DIRECTOR Respiratory Rate 14 03/22/2024 10:57 AM CAREER DEVELOPMENT DIRECTOR Oxygen Saturation 96% 03/22/2024 10:57 AM CAREER DEVELOPMENT DIRECTOR Inhaled Oxygen Concentration - - Weight 63 kg (139 lb) 03/22/2024 10:57 AM CAREER DEVELOPMENT DIRECTOR Height 149.9 cm (4' 11) 08/20/2021 2:25 PM CDT Body Mass Index 28.07 08/20/2021 2:25 PM CDT Plan of Treatment Upcoming Encounters Date Type Department Care Team (Late st Contact Info) Description 01/10/2025 2:45 PM CAREER DEVELOPMENT DIRECTOR Office Visit [facility] Oncology and Hematology - [place] [address] [place] [address] Zhou Garnica MD [address] [facility] [address] [place] [address] Health Maintenance Due Date Last Done Comments DTAP/TDAP/TD VACCINES (1 - Tdap) 1972 FIT-DNA Q 3 years 1998 FIT/FOBT Q 1 year 1998 Flex Sig/CT Colonography Q 5 years 1998 RSV VACCINE (60+ or ) (1 - Risk 50-74 years 1-dose series) 11/02/2003 ZOSTER VACCINE (2 of 3) 01/15/2015 11/20/2014 BREAST CANCER SCREENING 08/22/2023 08/21/2022, 08/21 Medicare Advantage ([place]) Preventative Visit/Annual Wellness Visit 03/08/2024 07/17/2022 INFLUENZA VACCINE (#1) 2024 , 12/01/2022, 11/21/2021, Additional history exists OSTEOPOROSIS SCREENING 11/26/2027 11/25/2022, 2022 COLORECTAL SCREENING 06/27/2033 06/28/2023, 06/28/19 Colorectal Cancer Screening 06/27/2033 PNEUMOCOCCAL VACCINE 50+ YEARS Completed 12/01/2022 , 02/05/2021 Insurance [facility] [id number] Care Teams Hydraulic Corrugating Machine Operator Relationship Specialty Start Date End Date Zenaida Guido MD PCP - General Family Practice 08/27/22
--- OUTSIDE RECORDS SUMMARY | 2025-01-09 15:37 | XMS_ITS | Clinical Summary ---
Author Organization [facility] Address [address] [place] [address] Care Team Providers [employer] Installer Name Role Phone Zenaida Guido MD Primary Care Pro vider Man Miller MD Unavailable [phone] Allergies Active Allergy Reactions Criticality Noted Date Comments Rosuvastatin Hives Medium 08/13/2023 Naproxen Stomach upset Low 11/21/2021 Sulfa (Sulfonamide Antibiotics) Rash Medium 03/08 Ezetimibe Hives Medium 12/06/2023 Medications acetaminophen (TYLENOL ARTHRITIS PAIN ORAL) Take 1,300 mg by mouth every morning Active GINKGO BILOBA ORAL Take 2 tablets by mouth every morning Active vortioxetine (TRINTELLIX) 20 mg tabletIndication s:major depressive disorder Take 1 tablet (20 mg total) by mouth daily 100 tablet 1 5 12/22/19 26 Active omeprazole (PriLOSEC) 20 mg capsuleIndicatio ns:Gastroesophag eal reflux disease without esophagitis Take 1 capsule (20 mg total) by mouth daily 90 capsule 3 5 Active magnesium gluconate 200 mg tablet Take 1 tablet (200 mg total) by mouth 2 (two) times a day 200 tablet 1 5 Active ketoconazole (NIZORAL) 2 % shampoo Apply topically 2 (two) times a week Apply to damp skin, lather, leave on 5 minutes, and rinse 120 mL 1 5 Active hydroCHLOROthiaz amrik (HYDRODIURIL) 25 mg tabletIndication s:Primary hypertension Take 1 tablet (25 mg total) by mouth daily 100 tablet 1 5 Active clobetasoL (TEMOVATE) 0.05 % external solution Apply topically 2 (two) times a day 50 mL 1 5 Active cetirizine (ZyrTEC) 10 mg tabletIndication s:chronic allergies Take 1 tablet (10 mg total) by mouth as needed for allergies 90 tablet 1 5 12/23/19 26 Active buPROPion XL (WELLBUTRIN XL) 150 mg 24 hr tabletIndication s:Anxiety with Depression Take 1 tablet (150 mg total) by mouth every morning 100 tablet 1 5 12/23/19 26 Active amLODIPine (NORVASC) 5 mg tabletIndication s:Primary hypertension Take 1 tablet (5 mg total) by mouth daily 100 tablet 1 5 Active cetirizine (ZyrTEC) 10 mg tabletIndication s:chronic allergies Take 1 tablet (10 mg total) by mouth as needed 12/23/19 25 Discontin ued(Reord er) magnesium gluconate 200 mg tablet Take 1 tablet (200 mg total) by mouth 2 (two) times a day as needed 12/23/19 25 Discontin ued(Reord er) omeprazole (PriLOSEC) 20 mg capsuleIndicatio ns:Gastroesophag eal reflux disease without esophagitis Take 1 capsule (20 mg total) by mouth daily 90 capsule 3 4 12/23/19 25 Discontin ued(Reord er) aspirin 81 mg enteric coated tablet Take 1 tablet (81 mg total) by mouth 2 (two) times a day for 14 days For blood clot prevention. Take with food. 28 tablet 4 12/23/19 25 Discontin ued(Thera py completed ) amLODIPine (NORVASC) 5 mg tabletIndication s:Primary hypertension Take 1 tablet (5 mg total) by mouth daily 100 tablet 1 5 12/23/19 25 Discontin ued(Reord er) hydroCHLOROthiaz amrik (HYDRODIURIL) 25 mg tabletIndication s:Primary hypertension Take 1 tablet (25 mg total) by mouth daily 100 tablet 1 5 12/23/19 25 Discontin ued(Reord er) buPROPion XL (WELLBUTRIN XL) 150 mg 24 hr tabletIndication s:Anxiety with Depression Take 1 tablet (150 mg total) by mouth every morning 100 tablet 1 5 12/22/19 25 Discontin ued(Reord er) vortioxetine (TRINTELLIX) 20 mg tabletIndication s:major depressive disorder Take 1 tablet (20 mg total) by mouth daily 100 tablet 1 5 12/22/19 25 Discontin ued(Reord er) ketoconazole (NIZORAL) 2 % shampoo APPLY TOPICALLY TO THE SCALP 3 TIMES WEEKLY IN SHOWER 5 12/23/19 25 Discontin ued(Reord er) clobetasoL (TEMOVATE) 0.05 % external solution APPLY TOPICALLY TO THE AFFECTED AREA NIGHTLY UP TO 1 MONTH AT A TIME NEEDED 5 12/23/19 25 Discontin ued(Reord er) buPROPion XL (WELLBUTRIN XL) 150 mg 24 hr tabletIndication s:Anxiety with Depression Take 1 tablet (150 mg total) by mouth every morning 100 tablet 1 5 12/23/19 25 Discontin ued(Reord er) Active Problems Problem Noted Date Diagnosed Date Diarrhea 09/07/2024 Assessment & Plan (09/07/2024 3:35 PM CDT): Reports that she has been having complaints of alternating stool but more so with diarrhea. States that she can have a few bowel movements a day that can be loose to watery. No reports of blood or mucus. States that certain foods like coffee can stimulate her bowels and she can have a bowel movement quite urgently. States that her complaints have been more prevalent in the last 3 months. Previous colonoscopy showed tortuous colon, colon polyps -We will obtain stool as well as blood work to rule out possible etiologies -Educated on importance of avoiding certain food triggers -Discussed possible etiologies including but not limited to dumping syndrome, IBS, post cholecystectomy syndrome, and others. -Recommended for her to start an [id number] probiotic like align or Meditech -We will call back with results and discussed plan of care Closed fracture of shaft of left humerus 024 Assessment & Plan (01/27/2024 3:35 PM HAND PAINTER): Reviewed ED note and orthopedics note, upcoming surgery tomorrow Dyslipidemia 07/16/2023 Assessment & Plan (12/22/2024 1:15 PM CDT): had side effects with crestor & zetia Assessment & Plan (06/05/2024 1:15 PM CDT): [...] chronic kidney disease 03/24/2023 Assessment & Plan (12/22/2024 1:15 PM CDT): Following with nephrology Assessment & Plan (06/05/2024 1:15 PM CDT): Following with nephrology Assessment & Plan (12/06/2023 8:44 AM CDT): Following with nephrology Assessment & Plan (07/16/2023 3:20 PM CDT): Following with nephrology Continue lisinopril Assessment & Plan (06/03/2023 3:10 PM CDT): Following with nephrology Continue lisinopril Assessment & Plan (03/24/2023 3:44 PM HAND PAINTER): With minimal proteinuria Continue xin Referral to nephrology Discussed low salt diet, focusing on plant proteins, maintaining hydration and limiting/avoiding NSAIDS Nausea and vomiting 12/21/2022 Assessment & Plan (09/07/2024 3:32 PM CDT): Reports that she has been having complaints of nausea with occasional vomiting. States that vomiting can be undigested food at times. No reports of heartburn. Can have occasional complaints of abdominal discomfort. Currently on daily PPI. Last EGD did show healing of her anastomosis ulcer. She is status gastric bypass as well as recent cholecystectomy. -Educated on importance of eating small portions throughout the day and avoiding certain trigger foods. -We will obtain blood work as well as stool to rule out possible etiologies -Recommended added Pepcid complete to help minimize her complaints. Assessment & Plan (03/23/2023 3:34 PM HAND PAINTER): Following with GI, reviewed note Upcoming EGD [...] without esophagi tis 12/21/2022 Assessment & Plan (12/22/2024 1:14 PM CDT): On omeprazole Following with GI Assessment & Plan (06/05/2024 1:15 PM CDT): On omeprazole Following with GI Assessment & Plan (03/23/2023 3:34 PM HAND PAINTER): On omeprazole Following with GI, reviewed note [...] stable Assessment & Plan (03/24/2023 3:47 PM HAND PAINTER): Continue minocycline 50mg daily Assessment & Plan (07/20/2022 8:37 AM CDT): Continue minocycline 50mg daily, could also consider changing to topical if well controlled Annual physical exam 07/17/2022 Assessment & Plan (12/22/2024 1:15 PM CDT): Reviewed PMH & PHQ Screening reviewed Hearing/vision screening reviewed, referrals placed as needed Fall risk reviewed Reviewed medications and supplements Specialists: petrologist, nephrology & ortho no evidence of cognitive impairment HCM: orders placed as needed Assessment & Plan (06/05/2024 1:15 PM CDT): Reviewed PMH & Reviewed medications and supplements HCM: orders placed as needed Assessment & Plan (12/06/2023 9:04 AM CDT): Reviewed PMH & FH PHQ Screening reviewed Hearing/vision screening reviewed, referrals placed as needed Fall risk reviewed Reviewed medications and supplements Specialists: petrologist, psychiatry/therapist & nephrology no evidence of cognitive [...] needed Primary hypertension 07/17/2022 Assessment & Plan (12/22/2024 1:52 PM CDT): Mildly elevated systolic, recommend monitoring at home, let me know if persisently >130/80 continue hydrochlorothiazide & 5mg amlodipine Assessment & Plan (06/05/2024 1:15 PM CDT): Controlled continue hydrochlorothiazide & 5mg amlodipine Assessment & Plan (01/27/2024 3:36 PM HAND PAINTER): Controlled continue hydrochlorothiazide & 5mg amlodipine Assessment [...] lisinopril Assessment & Plan (03/23/2023 4:00 PM HAND PAINTER): Discussed could benefit from blood pressure <130/80 given CKD, but she would like to avoid increasing medication at this time Discussed diet/exercise Assessment & Plan (12/01/2022 4:01 PM CDT): Blood pressure controlled Continue 10mg lisinopril Assessment & Plan (07/17/2022 11:30 AM CDT): Blood pressure at goal, continue 10mg lisinopril Recurrent major depressive disorder, in full rem ission 07/17/2022 Assessment & Plan (12/22/2024 1:14 PM CDT): Controlled Continue wellbutrin and trintellix 20mg Assessment & Plan (06/05/2024 1:30 PM CDT): [...] taper Assessment & Plan (03/23/2023 3:33 PM HAND PAINTER): Stable Continue effexor 150mg Assessment & Plan (12/01/2022 4:39 PM CDT): Stable Continue effexor 150mg Assessment & Plan (07/17/2022 11:30 AM CDT): Stable Consider decreasing effexor to 75mg when due for refill History of diabetes mellitus resolved following bariatric surgery 07/17/2022 Assessment & Plan (12/22/2024 1:16 PM CDT): Lab Results Component Value Date HGBA1C 6.0 06/05/2024 Recommend healthy diet Continue to monitor Assessment & Plan (06/05/2024 1:34 PM CDT): A1c 6, improved Recommend healthy diet Continue to monitor History of gastric bypass 07/17/2022 Vitamin B12 deficiency (non anemic) 12/20/2020 Iron deficiency anemia 07/03/2020 Assessment & Plan (12/22/2024 1:16 PM CDT): Lab Results Component Value Date HGB 11.9 09/12/2024 Lab Results Component Value Date HCT 35.8 09/12/2024 Assessment & Plan (12/06/2023 9:04 AM CDT): Recent labs with mild anemia and adequate iron levels Following with heme Continue iron supplement Assessment & Plan (06/03/2023 3:09 PM CDT): Following with heme Continue iron supplement Assessment & Plan (03/23/2023 3:34 PM HAND PAINTER): Following with heme, reviewed note Continue iron supplement Resolved Problems Problem Noted Date Diagnosed Date Resolved Date Closed displaced fracture of proximal phalanx of left little finger 03/26/2022 12/22/2024 Overview (03/26/2022): Added automatically from request for surgery [id number] Displaced fracture of distal phalanx of left ring finger, initial encounter for closed fracture 03/26/2022 12/22/2024 Overview (03/26/2022): Added automatically from request for surgery [id number] Encounters Date Type Department Care Team Description 12/22/2024 1:00 PM CDT Office Visit [facility] Primary Care at [address] [place] [address] Zenaida Guido MD Encounter for annual wellness visit (AWV) in Medicare patient (Primary Dx); Osteopenia with high risk of fracture; Vitamin D deficiency; Primary hypertension; Stage 3a chronic kidney disease (HCC); Dyslipidemia; Gastroesophageal reflux disease without esophagitis; History of iron deficiency anemia; Recurrent major depressive disorder, in full remission; History of diabetes mellitus resolved following bariatric surgery 11/27/2024 12:20 PM CDT - 11/27/2024 11:59 PM CDT Hospital Encounter [facility] Office [facility] [address] [address] Post-menopausal Discharge Disposition: Discharge to home or self care 11/08/2024 [facility] Care Organization [address] [place] [id number] Kerrie Fang MA from Last 3 Months Immunizations Immunization Administration Dates Next Due Hep A, Adult 06/29/2007 Influenza, Quad, Adjuvantate d, Intramuscular 01/24/2021 Influenza, Quadrivalent, Hig h Dose, Preservative Free, Intrr 12/01/2022,11/21/2021 Influenza, Quadrivalent, Rec ombinant, Egg Free, Preservative Free, Intramuscular 11/22/2018 Influenza, Quadrivalent, Spl it, Preservative Free, Intramuscular 01/18/2018 Influenza, Trivalent, Adjuva nted, Intramuscular 11/20/2024 Influenza, Trivalent, High D ose, Split, Preservative Free, Intramuscular 12/06/2023,11/21/2021 Influenza, Trivalent, IM (MDV) ,12/04/2019,11/22/2018,12/07,10/30/2015,11/21/2014,11/20/2014 ,11/27/2013,11/11/2012,12/08/2011,07/2010,12/13/2009,11/06/2008, 8,12/28/2006,01/01/2006,12/24/2003 Influenza, Trivalent, Preser vative Free, Intramuscular 11/20/2014 Pneumococcal Conjugate PCV 13 03/13/2016 Pneumococcal Conjugate Pcv20 12/01/2022 Pneumococcal Polysaccharide PPV23 02/05/2021 Td, Not Adsorbed 09/28/1995 Tdap 06/29/2007 ZOSTER LIVE 11/20/2014 Surgical History Surgery Date [...] anemia Last iron infusion ~09/2021; Followed by petrologist at [facility] History of diabetes mellitus DM dxd ~2001-- Pt stopped checking BS at home after gastric bypass (previously on metformin only) Depression Type 2 diabetes mellitus Nausea and vomiting History of gastroesophageal reflux [...] Packs/Day Years Used Date Smoking Tobacco: Never Passive Smoke Exposure: Never Smokeless Tobacco: Never Tobacco Cessation:Counseling Given: No Alcohol Use Standard Drinks/Week Comments Yes 0 (1 standard drink = 0.6 oz pur e alcohol) PHQ-2 Answer Date Recorded PHQ-2 Total Score (If total score is 3 or more points, staff should administer the PHQ-9) 0 12/22/2024 PHQ-9 Answer Date Recorded PHQ-9 Total Score 6 08/13/2023 AUDIT-C Answer Date Recorded Q1: How often do you have a drink containing alc ohol? Monthly or less 12/22/2024 Q2: How many drinks containi ng alcohol do you have on a typical day when you are drinking? 1 or 2 12/22/2024 Q3: How often do you have si x or more drinks on one occasion? Never 12/22/2024 Personal Safety Answer Date Recorded Have you ever been in or are you currently in a harmful physical or emotional relationship or is someone making you feel afraid or unsafe? Denies 01/28/2024 Comments No Sex and Gender Information Value Date Recorded Sex Assigned at Not on file Legal Sex Female 12:56 PM HAND PAINTER Gender Identity Female 06/23/2023 8:57 AM CDT Sexual Orientation Straight 06/23/2023 8: 57 AM CDT Obstetrics History Para Term AB IAB SAB Ectopic Multiple Livin g Live Births 2 2 2 Date Outcome GA Total Labor Labor/2nd/3rd Weight Sex Type Anes PTL Alba A1 A5 Name Clin Term Term Last Filed Vital Signs Vital Sign Reading Time Taken Comments Blood Pressure 132/70 12/22/2024 1:02 PM CDT Pulse 66 12/22/2024 1:02 PM CDT Temperature 36.4 C (97.6 F) 12/22/2024 1:02 PM CDT Respiratory Rate 18 12/22/2024 1:02 PM CDT Oxygen Saturation 98% 12/22/2024 1:02 PM CDT Inhaled Oxygen Concentration - - Weight 62.2 kg (137 lb 3.2 oz) 12/22/2024 1:02 P M CDT Height 149.9 cm (4' 11) 12/22/2024 1:02 PM CDT Body Mass Index 27.71 12/22/2024 1:02 PM CDT Plan of Treatment Health Maintenance Due Date Last Done Comments Zoster Vaccine (2 of 3) 01/15/2015 11/20/2014 DTaP/Tdap/Td Vaccine (2 - Td or Tdap) 06/28/2017 06/29/2007, 09/28/1995 Covid-19 Vaccine (7 - 2023-2 5 season) 2025 11/20/2024, 10/20/2022, 12/31/2021, Additional history exists Breast Cancer Screening-Mammogram 09/05/2025 025, 08/21/2022 Depression Screening 12/22/2025 12/22/2024, 12/06/2023, 08/13/2023, Additional history exists Fall Risk Assessment 12/22/2025 12/22/2024, 01/26/2024, 12/06/2023, Additional history exists Well Visit 65+ 12/22/2025 12/22/2024, 03/3 03/2024, 12/06/2023, Additional history exists Osteoporosis Screening-Bone Density Scan 11/27/2026 11/27/2024, 11/25/2022 Colon Cancer Screening-Colonoscopy 06/27/2028 06/28/2023 Pneumococcal vaccine 65+ Completed 023, 02/05/2021, 03/13/2016 Hepatitis C Screening Completed 01/11/2023 Influenza Vaccine Completed 11/20/2024, , 12/01/2022, Additional history exists Hepatitis B Screening Discontinued Medical Devices Implanted Type Area Manufacturing Technician Device Identifier Shelf Expiration Date Model / Serial / Lot [employer] Elzbieta .045in 9in Trocar [place] Both Ends Orthopedic Wire [id number] - [id number] Implanted:Qty: 2 on 04/06/2022 by Adam Dunlap MD at [facility] [employer] [id number] / / Synthes 3.5mm 2.9mm 46mm Self Tap Lock Stardrive Conical Head T15 Full 212.136 - [id number] Implanted:Qty: 1 on 01/28/2024 by Jailyn Mckenzie MD at [facility] Left: Humerus Synthes I 212.136 / / Synthes 3.5mm 2.9mm 42mm Self Tap Lock Stardrive Conical Head Full Thread 212.118 - [id number] Implanted:Qty: 2 on 01/28/2024 by Jailyn Mckenzie MD at [facility] Left: Humerus Synthes I 212.118 / / Synthes 3.5mm 2.9mm 36mm Self Tap Lock Stardrive Conical Head T15 Full 212.115 - [id number] Implanted:Qty: 1 on 01/28/2024 by Jailyn Mckenzie MD at [facility] Left: Humerus Synthes 212.115 / / Synthes 3.5mm 6mm 28mm 2.5mm Self Tap Small Hexagonal Socket Low Profile 204.828 - [id number] Implanted:Qty: 1 on 01/28/2024 by Jailyn Mckenzie MD at [facility] Left: Humerus Synthes 204.828 / / Synthes 3.5mm 2.9mm 28mm Self Tap Lock Stardrive Conical Head T15 Full 212.110 - [id number] Implanted:Qty: 2 on 01/28/2024 by Jailyn Mckenzie MD at [facility] Left: Humerus Synthes 212.110 / / Synthes 2.7mm 5mm 20mm 2.5mm Self Tap Stardrive Cortical T8 Screw Bone 202.880 - [id number] Implanted:Qty: 2 on 01/28/2024 by Jailyn Mckenzie MD at [facility] Left: Humerus Synthes 202.880 / / Synthes 2.7mm 5mm 22mm 2.5mm Self Tap Stardrive Cortical T8 Screw Bone 202.882 - [id number] Implanted:Qty: 1 on 01/28/2024 by Jailyn Mckenzie MD at [facility] Left: Humerus Synthes 202.882 / / Synthes Lcp Combi Philos Long 768s83f2.7mm 10 Hole Shaft Lock Compression 241.923 - [id number] Implanted:Qty: 1 on 01/28/2024 by Jailyn Mckenzie MD at [facility] Left: Humerus Synthes I 241.923 / / Synthes 3.5mm 6mm 24mm 2.5mm Self Tap Small Hexagonal Socket Low Profile 204.824 - [id number] Implanted:Qty: 2 on 01/28/2024 by Jailyn Mckenzie MD at [facility] Left: Humerus Synthes 204.824 / / Synthes 2.7mm 5mm 26mm 2.5mm Self Tap Spherical Head Small Hexagonal 202.826 - [id number] Implanted:Qty: 2 on 01/28/2024 by Jailyn Mckenzie MD at [facility] Left: Humerus Synthes 202.826 / / Synthes 3.5mm 6mm 22mm 2.5mm Self Tap Small Hexagonal Socket Low Profile 204.822 - [id number] Implanted:Qty: 2 on 01/28/2024 by Jailyn Mckenzie MD at [facility] Left: Humerus Synthes I 204.822 / / Explanted Type Area Manufacturing Technician Device Identifier Shelf Expiration Date Model / Serial / Lot Synthes 3.5mm 2.9mm 44mm Self Tap Lock Stardrive Conical Head T15 Full 212.134 - [id number] Explanted:Qty: 1 on 01/28/2024 by Jailyn Mckenzie MD at [facility] Left: Humerus Synthes 212.134 / / Synthes 3.5mm 2.9mm 32mm Self Tap Lock Stardrive Conical Head T15 Full 212.112 - [id number] Explanted:Qty: 1 on 01/28/2024 by Jailyn Mckenzie MD at [facility] Left: Humerus Synthes 212.112 / / Synthes 3.5mm 2.9mm 40mm Self Tap Lock Stardrive Conical Head T15 Full 212.117 - [id number] Explanted:Qty: 1 on 01/28/2024 by Jailyn Mckenzie MD at [facility] Left: Humerus Synthes 212.117 / / Synthes 3.5mm 6mm 26mm 2.5mm Self Tap Small Hexagonal Socket Low Profile 204.826 - [id number] Explanted:Qty: 2 on 01/28/2024 by Jailyn Mckenzie MD at [facility] Left: Humerus Synthes 204.826 / / Synthes 3.5mm 6mm 24mm 2.5mm Self Tap Small Hexagonal Socket Low Profile 204.824 - [id number] Explanted:Qty: 1 on 01/28/2024 by Jailyn Mckenzie MD at [facility] Left: Humerus Synthes 204.824 / / [employer] Elzbieta .062in 9in Trocar Point One End Orthopedic Wire 1600-9625ns - [id number] Explanted:Qty: 3 on 01/28/2024 by Jailyn Mckenzie MD at [facility] Left: Humerus [employer] [id number] S / / Synthes 3.5mm 6mm 20mm 2.5mm Self Tap Small Hexagonal Socket Low Profile 204.820 - [id number] Explanted:Qty: 1 on 01/28/2024 by Jailyn Mckenzie MD at [facility] Left: Humerus Synthes 204.820 / / Synthes 3.5mm 2.9mm 38mm Self Tap Lock Stardrive Conical Head T15 Full 212.116 - [id number] Explanted:Qty: 1 on 01/28/2024 by Jailyn Mckenzie MD at [facility] Left: Humerus Synthes 212.116 / / Procedures Procedure Name Priority Date/Time Associated Diagnosis Comments DEXA AXIAL SKELETON BONE DENSITY 1 OR MORE SITES Schedule Routine, Read Routine (OP Routine) 11/27/2024 12:41 PM CDT Post-menopausal DIABETIC EYE EXAM Routine 10/09/2024 8: 37 AM CDT SCREENING MAMMOGRAM BILATERAL W JENSEN Schedule Routine, Read Routine (OP Routine) 09/05/2024 12:21 PM CDT Encounter for screening mammogram for breast cancer COLONOSCOPY 06/28/2023 10:28 AM CDT HEPATITIS C ANTIBODY Routine 01/11/2023 9:13 AM HAND PAINTER Encounter for annual wellness visit (AWV) in Medicare patient from Last 3 Months or Most Recently Relevant to Health Maintenance Results * Dexa Axial Skeleton Bone Density 1 or 2 Site (11/27/2024 12:41 PM CDT) Anatomical Region Laterality Modality Body N/A Mammography 11/27/2024 12:4 4 PM CDT Narrative 11/27/2024 12:45 PM CDT EXAM DESCRIPTION: DEXA AXIAL SKELETON BONE DENSITY 1 OR MORE SITES REASON FOR STUDY: 69 y/o year old F with given history of: Post menopausal status. History of taking vitamin-D and calcium Manufacturing Technician/Model: [place] A (S/N [id number]) Facility LSC value of 0.022 for the AP spine, 0.027 for the femur, and 0.023 for the forearm. CLINICAL INFORMATION: Current height: 59 inches Maximum height: 61.5 inches Weight: 129 pounds Risk factors: None COMPARISON: 11/25/2022 FINDINGS: AP LUMBAR SPINE L1-L4: Total BMD is 1.062 g/cm2 T-score is 0.1 This is a 1.8% decrease in comparison to prior exam which is not statistically significant. LEFT HIP: Total BMD is 0.699 g/cm2 T-score is -2.0 This is a 0.6% decrease in comparison to prior exam which is statistically significant. Femoral neck BMD is 0.586 g/cm2 T-score is -2.4 FRAX: 10 year risk for a major osteoporotic fracture is 14 %, 10 year risk for a hip fracture is 3.4 % Per National Osteoporosis Foundation guidelines, this patient does meet the criteria for pharmacological treatment of patients with FRAX 10 year major osteoporotic fracture risk scores of = or greater than 20% or a 10 year probability of a hip fracture = or greater than 3%, to reduce fracture risk. Additional factors such as frequent falls are not represented in FRAX and warrant individual clinical judgment. IMPRESSION: 1. Low bone mass REFERENCE: Bone mineral density: T-Score: Normal (T-score above or = -1.0) Low bone mass (T-score between -1.0 and -2.5) replaces the previously used term osteopenia Osteoporosis (T-score = or below -2.5) Z-Score: Within the expected range for age (Z-score above -2.0) Below the expected range for age (Z-score is -2.0 or below) Please see below follow up recommendations. Medical evaluation for secondary causes of low [...] greater than 3% should be considered for pharmacological treatment for the prevention of osteoporosis. For further information, including treatment recommendations, please refer to the 2019 ISCD Official Positions (http://www.iscd.org) and the NOF's Clinician's Guide to Prevention and Treatment of Osteoporosis (http://www.nof.org/professionals/clinical-guidelines) THIS IS AN ELECTRONICALLY VERIFIED FINAL REPORT 11/27/2024 12:45 PM - Electronically signed by Kerry Dominguez M.D. TW: TW Report ID: [id number] Reading Location: [id number] Procedure Note Kerry Dominguez MD - 11/27/2024 EXAM DESCRIPTION: DEXA AXIAL SKELETON BONE DENSITY 1 OR MORE SITES REASON FOR STUDY: 69 y/o year old F with given history of: Post menopausal status. History of taking vitamin-D and calcium Manufacturing Technician/Model: [employer] A (S/N [id number]) Facility LSC value of 0.022 for the AP spine, 0.027 for the femur, and0.023 for the forearm. CLINICAL INFORMATION: Current height: 59 inches Maximum height: 61.5 inches Weight: 129 pounds Risk factors: None COMPARISON: 11/25/2022 FINDINGS: AP LUMBAR SPINE L1-L4: Total BMD is 1.062 g/cm2 T-score is 0.1 This is a 1.8% decrease in comparison to prior exam which is notstatistically significant. LEFT HIP: Total BMD is 0.699 g/cm2 T-score is -2.0 This is a 0.6% decrease in comparison to prior exam which is statistically significant. Femoral neck BMD is 0.586 g/cm2 T-score is -2.4 FRAX: 10 year risk for a major osteoporotic fracture is 14 %, 10 year risk for ahip fracture is 3.4 % Per National Osteoporosis Foundation guidelines, this patient does meetthe criteria for pharmacological treatment of patients with FRAX 10 year major osteoporotic fracture risk scores of = or greater than 20% or a 10 year probability of a hip fracture = or greater than 3%, to reduce fracturerisk. Additional factors such as frequent falls are not represented in FRAX and warrant individual clinical judgment. IMPRESSION: 1. Low bone mass REFERENCE: Bone mineral density: T-Score: Normal (T-score above or = -1.0) Low bone mass (T-score between -1.0 and -2.5) replaces thepreviously used term osteopenia Osteoporosis (T-score = or below -2.5) Z-Score: Within the expected range for age (Z-score above -2.0) Below the expected range for age (Z-score is -2.0 or below) Please see below follow up recommendations. Medical evaluation forsecondary causes of low bone mineral density may [...] or greaterthan 3% should be considered for pharmacological treatment for the preventionof osteoporosis. For further information, including treatment recommendations, please referto the 2019 ISCD Official Positions (http://www.iscd.org) and the NOF's Clinician's Guide to Prevention and Treatment of Osteoporosis (http://www.nof.org/professionals/clinical-guidelines) THIS IS AN ELECTRONICALLY VERIFIED FINAL REPORT 11/27/2024 12:45 PM - Electronically signed by Kerry Dominguez M.D. TW: TW Report ID: [id number] Reading Location: [id number] Zenaida Guido MD IMG DXA PROCEDURE S Final Result * Diabetic Eye Exam (10/09/2024 8:37 AM CDT) Historical Provider HEALTH MAINTENANCE Final Result * Screening Mammogram Bilateral W Jensen (09/05/2024 12:21 PM CDT) Anatomical Region Laterality Modality Breast Bilateral Mammography Impressions 09/05/2024 12:45 PM CDT BI-RADS ATLAS category (overall): 1 - Negative There is no mammographic evidence of malignancy. A 1 year screening mammogram is recommended. The patient has been or will be contacted. We recommend annual screening mammography for women at average risk of breast cancer beginning at age 40, based on guidelines of the [employer] (ACR Practice Parameter for the Performance of Screening and Diagnostic Mammography) and [employer]. For women with and elevated risk of breast cancer, please refer to the ACR Practice Parameter for specific screening recommendations. The patient will be entered into a reminder system with a target due date of 1 year for her next screening exam. Narrative 09/05/2024 12:45 PM CDT Screening Mammogram Bilateral W Jensen: 09/05/24 The study was acquired using full field digital technology and interpreted from soft copy. 2D digital mammographic views, as well as 3D digital tomosynthesis were performed in the CC and MLO projections. CLINICAL: Encounter for screening mammogram for breast cancer. No relevant medical history has been documented for this patient. History of breast cancer in Mother's Sister, Paternal Grandmother. COMPARISONS: 08/21/2022 Screening Mammogram Bilateral W Jensen 05/15/2020 Breast Imaging Screening Outside Reference BREAST TISSUE: There are scattered areas of fibroglandular density. FINDINGS: There is no new suspicious finding in either breast on mammogram. us Zenaida Guido MD IMG MAMMO PROCEDU RES Final Result * Colonoscopy (06/28/2023 10:28 AM CDT) Anatomical Region Laterality Modality Other Narrative Procedure Note Ciro Buenrostro MD - 06/28/2023 10:[address] [facility] Patient Name: Rosalie Patterson Procedure Date: 06/28/2023 10:28 AM Date of : 1955 Admit Type: Outpatient Age: 67 Gender: Female Attending MD: Ciro Buenrostro M.D. Room: [facility] ENDOSCOPY ROOM 06 Note Status: Finalized Procedure: [...] The scope was passed under direct vision.The [id number]-CB412V colonoscope was introduced through theanus and advanced [...] On: 06/28/2023 10:28 AM Recognized by the [employer] [employer] for promoting quality in endoscopy Ciro Buenrostro MD ENDOSCOPY PROCEDURES Final Resul t * Hepatitis C antibody Blood (01/11/2023 9:13 AM HAND PAINTER) Hep C Ab Nonreactive Nonreactive CHAN AGUSTIN [...] revised on 2019. Blood 01/11/2023 9:13 AM HAND PAINTER 01/11/2023 12:50 PM HAND PAINTER Zenaida Guido MD LAB MICROBIOLOGY - GENERAL ORDERABLES Final Result CHAN AGUSTIN [address] [facility] Department [place] [address] from Last 3 Months or Most Recently Relevant to Health Maintenance Insurance [facility] MEDICARE [facility]ANT[facility] Address: [place] [id number] [facility] MEDICARE AD[facility]ANTAGE [facility] MEDICARE Address[facility] [place] [address] [facility] MEDICARE ADVANTAGE [facility] MEDICARE Address: [facility] [address] [place] [address] Care Teams Dish Network Installer Relationship Specialty Start Date End Date Zenaida Guido MD PCP - General Family Medicine 07/17/22 [place] [id number] [address] [address] Surgeon General Surgery 05/04/23
[2025-01-09 18:00] LABS: Iron 103 ug/dL (37-170)
[2025-01-09 18:11] LABS: Percent Iron Saturation 35 % (20-50)
[2025-01-09 18:46] LABS: Ferritin 30.40 ng/mL (11.1-264)
[2025-01-09 19:59] LABS: Vitamin B12 657.0 pg/mL (239-931)
== END 2025-01-09 13:57 | disposition home or self-care (01) ==
LOC: ANHLAB 13:57
PROVIDERS: Visit Provider Internal Medicine Hematology & Oncology
DX: D64.9 Anemia, unspecified (principal)
CPT/HCPCS: 36415; 82607; 82728; 82746; 83540; 83550; 85025